=== PATIENT | female | born 1965 | race Two or more races ===

== ENCOUNTER 2023-05-25 09:54 | Outpatient (REF) | payer MEDICAID, OTHER, SELFPAY ==
[2023-05-25 12:26] LABS: Alanine Aminotransferase 51 U/L (0-31); Albumin Level 4.4 g/dL (3.5-5.0); Alkaline Phosphatase 79 U/L (39-117); Anion Gap 14 (12-20); Aspartate Amino Transferase 45 U/L (5-31); Bilirubin Total 0.6 mg/dL (0.0-1.0); Blood Urea Nitrogen 18 mg/dL (9-16); Calcium 10.4 mg/dL (8.4-10.2); Carbon Dioxide 28 mmol/L (22-29); Chloride 105 mmol/L (96-108); Cholesterol 210 mg/dL (<200); Estimated Glomerular Filt Rate > 60; Glucose Random 94 mg/dL (60-115); HDL Cholesterol 59 mg/dL (>40); LDL Cholesterol Calculated 132 mg/dL (<100); Sodium 143 mmol/L (135-145); Total Protein 8.1 g/dL (6.5-8.0); Triglycerides 96 mg/dL (<150)
== END 2023-05-25 09:55 | disposition home or self-care (01) ==
LOC: HO.HHCL 09:54
PROVIDERS: Visit Provider Nurse Practitioner Family
DX: E78.00 Pure hypercholesterolemia, unspecified (principal); I10 Essential (primary) hypertension
CPT/HCPCS: 36415; 80053; 80061

== ENCOUNTER 2023-10-06 10:35 | Outpatient (AMB) | payer OTHER, SELFPAY ==
--- NOTE | 2023-10-06 11:29 | A.OFFPC_ITS ---
Vital Signs 10/06/23 11:31 Height 5 ft 3 in Weight 191 lb 8 oz BMI 33.9 BP 132/80 Blood Pressure Location Lt brachial Position Sitting Pulse 73 Pulse Source Pulse Oximeter Pulse Oximetry (%) 97 Oxygen Delivery Method Room Air Intake Visit Reasons: New patient-discuss referral to pain management Intake Note: Patient is a new patient here to establish care for Asthma, Chronic back pain,HTN, High cholesterol. Transferring care from [facility]. Medical records have not been requested and have not received. Request for pain management, and mammogram Delivery Associate Required: Yes Delivery Associate Language: Beef Splitter Name: Ana Paula (spouse) Information Interpreted: non-clinical & clinical Mortgage Loan Specialist: Present Accompanied by: Spouse Allergies ibuprofen Allergy (Intermediate, Verified 10/07/23 14:07) Hives salbutamol Allergy (Intermediate, Uncoded 10/07/23 14:07) Palpitations Medication List - Last Reconciled 10/07/23 by Tim Joseph MD ipratropium bromide 17 mcg/actuation (Atrovent HFA) 2 puffs inhalation Q8H losartan 100 mg PO DAILY rosuvastatin 40 mg PO DAILY Tobacco use date assessed: 10/06/23 Dental Screening Dental Screen Date: 10/06/23 Did you have a dental visit in the last 12 months?: Yes Did you have a dental problem in the last 6 months where you did not have access to dental care?: No Was dental information given to patient?: Patient has dentist HPI New patient-discuss referral to pain management HPI Details 57-year-old female [facility] to [facility] her care here. She has recently moved from [facility]. She is accompanied by her who is speaking on her behalf and translating. Patient gives history of hypertension, hypercholesterolemia and asthma. She requests a refill on the rosuvastatin and Pulmicort. She is taking Plavix for an unknown reason. Denies any history of irregular heart rate or stroke. Patient had back surgery in 2009 with fusion disc. Started experiencing symptoms of low back pain with radiating into the right leg. Patient is requesting a referral to the pain clinic. She would also like to see a energy broker. [facility], [facility] Medical History (Updated 10/07/23 @ 14:18 by Tim Joseph MD) Low back pain Hypercholesterolemia Essential hypertension Asthma History of benign breast biopsy Surgical History History of back surgery History of cystostomy Social History Housing: House Alcohol intake: never Patient Tobacco Use Status: Never used Tobacco e-Cigarette/Vaping Use: Never Used Second Hand Smoke Exposure: No service: No Current occupational status: unemployed Cognitive needs: No Hearing needs: No Vision needs: No Questionnaire PHQ-9 Over the last 2 weeks, how often have you been bothered by any of the following problems? 1. Little interest or pleasure in doing things: not at all 2. Feeling down, depressed, or hopeless: not at all 3. Trouble falling or staying asleep, or sleeping too much: not at all 4. Feeling tired or having little energy: not at all 5. Poor appetite or overeating: not at all 6. Feeling bad about yourself - or that you are a failure or have let yourself or your family down: not at all 7. Trouble concentrating on things, such as reading the newspaper or watching television: not at all 8. Moving or speaking so slowly that other people could have noticed. Or the opposite - being so fidgety or restless that you have been moving around a lot more than usual: not at all 9. Thoughts that you would be better off or of hurting yourself in some way: not at all Total score: 0 Depression Screening Interpretation: Negative Depression Screening Done: Yes Source: Developed by Drs. German Velez, Cecily Lew, Bay Cruz and colleagues, with an educational crystal from [employer]. Thrive Questionnaire Date Thrive assessed: 10/06/23 I am a: Patient What is your living situation today?: I have a steady place to live Within the past 12 months, did the food you bought not last and you didn't have the money to get more?: Never true Within the past 12 months, did you worry whether your food would run out before you got money to buy more?: Never true Do you have trouble paying for medicines?: No Do you have trouble getting transportation to medical appointments?: No Do you have trouble paying your heating and electricity bill?: No Do you have trouble taking care of your child, family member or friend?: No Do you have trouble with day-to-day activities such as bathing, preparing meals, shopping, managing finances, etc.?: No Are you currently unemployed and looking for a job?: No Are you interested in more education?: No Currently or been in a relationship where the following occur: no concerns reported THRIVE Score: 0 AUDIT C Alcohol Use Questionnaire (AUDIT-C) 1. How often do you have a drink containing alcohol?: Never Total Score: 0 AFSHAN-7 AMB Questionnaire AFSHAN-7 Date AFSHAN - 7 assessed: 10/06/23 Feeling nervous, anxious, or on edge: 0 = Not at all Not being able to stop or control worryin = Not at all Worrying too much about different things: 0 = Not at all Trouble relaxin = Not at all Being so restless that it is hard to sit still: 0 = Not at all Becoming easily annoyed or irritable: 0 = Not at all Feeling afraid as if something awful might happen: 0 = Not at all Total AFSHAN-7 score (0-4 normal; 5-9 mild; 10-14 moderate; 15-21 severe): 0 Source: Developed by Drs. German Velez, Cecily Lew, Bay Cruz and colleagues, with an educational crystal from [employer]. Physical exam (Primary Care) Vital Signs: Last Vital Signs Pulse 73 10/06/23 11:31 BP 132/80 10/06/23 11:31 Pulse Ox 97 10/06/23 11:31 Oxygen Delivery Method Room Air 10/06/23 11:31 Care Plan Goal for BP management: Blood pressure is in range. Continue current medications. BMI result Body Mass Index 33.9 BMI Assessment/Plan discussion: High (1 lb per week weight loss suggested.) BMI High, discussed plan: lifestyle, weight reduction, dietary and physical activity Tobacco/Smoking Status: Tobacco use Status Tobacco use date assessed 10/06/23 10/06/23 11:46 Patient Tobacco Use Status Never used Tobacco 10/06/23 11:46 e-Cigarette/Vaping Use Never Used 10/06/23 11:46 PHQ-9: PHQ-9 Score PHQ-9: Total score 0 10/06/23 11:46 Depression Screening Interpretation: Negative Thrive Assessment: Date of Thrive Assessment Date Thrive assessed 10/06/23 10/06/23 11:46 Currently or been in a relationship where the following occur: no concerns reported Const General: cooperative and healthy appearing Nutritional Appearance: well nourished Orientation/consciousness: patient oriented x3 Limitations: no limitations HENMT Head: Yes normal to inspection Eyes General: appearance normal, both eyes and all related structures Neck Neck: Yes normal visual inspection Chest Chest palpation & inspection: normal palpation of entire chest wall Resp Effort & Inspection: normal respiratory effort Neuro General: patient oriented x3 Assessment and Plan Assessment & Plan (1) Essential hypertension: Code(s): I10 - Essential (primary) hypertension Plan: Blood work has been ordered. Will call with results. Prescription for losartan has been sent. Old records from her previous provider will be requested. There is no indication for her to be on Plavix. This medication has not been refilled. (2) Asthma: Code(s): J45.909 - Unspecified asthma, uncomplicated Plan: Atrovent added to the regimen. Pulmonology consult made. (3) Hypercholesterolemia: Code(s): E78.00 - Pure hypercholesterolemia, unspecified Plan: Rosuvastatin has been restarted. Counseling on the importance of diet and exercise done. (4) Low back pain: Code(s): M54.50 - Low back pain, unspecified Plan: It has not necessary at the moment to get a pain clinic referral. Patient was advised to do stretching exercises and take Tylenol at night. Orders: Orders Complete Blood Count no Diff Today I10 - Essential (primary) hypertension, J45.909 - Unspecified asthma, uncomplicated Basic Metabolic Panel Today I10 - Essential (primary) hypertension, J45.909 - Unspecified asthma, uncomplicated Lipid Panel Today I10 - Essential (primary) hypertension, J45.909 - Unspecified asthma, uncomplicated Thyroid Stimulating Hormone Today I10 - Essential (primary) hypertension, J45.909 - Unspecified asthma, uncomplicated UA and rflx microscopic Today I10 - Essential (primary) hypertension, J45.909 - Unspecified asthma, uncomplicated MM screening mammo BI Today Z12.31 - Encounter for screening mammogram for malignant neoplasm of breast Liver Panel Today I10 - Essential (primary) hypertension, J45.909 - Unspecified asthma, uncomplicated Referrals Pulmonology Referral J45.909 - Unspecified asthma, uncomplicated Medications: New ipratropium bromide 17 mcg/actuation (Atrovent HFA) 2 puffs inhalation Q8H 12.9 grams 0RF Coding Level of Care Code New Pt Level 4 (14684) Diagnoses Essential hypertension I10 Asthma J45.909 Hypercholesterolemia E78.00 Low back pain M54.50
[2023-10-06 11:31] VITALS: BP 132/80; PULSE 73; O2SAT 97; BMI 33.9
== END 2023-10-06 12:15 | disposition home or self-care (01) ==
PROVIDERS: PCP Internal Medicine; Visit Provider Internal Medicine
DX: I10 Essential (primary) hypertension (principal); J45.909 Unspecified asthma, uncomplicated; E78.00 Pure hypercholesterolemia, unspecified; M54.50 Low back pain, unspecified
CPT/HCPCS: 99204

== ENCOUNTER 2023-11-18 08:25 | Outpatient (REF) | payer OTHER, SELFPAY ==
--- NOTE | ~2023-11-18 | MM_ITS ---
EXAMINATION: MM SCREENING DIGITAL BREAST TOMOSYNTHESIS, BILATERAL CLINICAL INFORMATION: Screening. Asymptomatic. The patient reports a history of benign excisional biopsy in the upper outer quadrant of the left breast. COMPARISON: Mammography: There are no prior mammograms for comparison. TECHNIQUE: Digital breast tomosynthesis is performed in both the craniocaudal and mediolateral oblique views along with computer-aided detection (CAD). Synthesized 2D images are generated from the tomosynthesis. FINDINGS: The breasts are heterogeneously dense, which may obscure small masses (ACR BI-RADS breast composition Category c). There are no significant masses, abnormal calcifications, or other abnormalities. MM/MM tomosynthesis screening BI IMPRESSION: No mammographic evidence of malignancy. ASSESSMENT: BI-RADS BI-RADS 1 - Negative RECOMMENDATION: Routine annual mammography screening. 1 year F/U This examination should not preclude the clinical evaluation of a suspicious palpable abnormality. This patient's information was entered into a reminder system with a target due date for their next mammogram.
== END 2023-11-18 08:26 | disposition home or self-care (01) ==
LOC: HO.MAMMO 08:25
PROVIDERS: PCP Internal Medicine; Visit Provider Internal Medicine
DX: Z12.31 Encounter for screening mammogram for malignant neoplasm of breast (principal)
CPT/HCPCS: 77063; 77067

== ENCOUNTER → 2023-11-18 08:45 | Outpatient (BNV) | payer OTHER, SELFPAY | PROVIDERS: PCP Internal Medicine; Visit Provider Radiology Diagnostic Radiology | DX: Z12.31 Encounter for screening mammogram for malignant neoplasm of breast (principal) | CPT/HCPCS: 77063; 77067 ==

== ENCOUNTER 2023-12-09 08:54 | Outpatient (REF) | payer OTHER, SELFPAY ==
--- NOTE | ~2023-12-09 | XR_ITS ---
EXAMINATION: XR CHEST 2 VIEWS CLINICAL INFORMATION: Asthma. COMPARISON: None. TECHNIQUE: Frontal and lateral views of the chest were obtained. FINDINGS: The heart, great vessels, pulmonary vasculature and mediastinum are normal. The lungs show no focal infiltrate, effusion or pneumothorax. There is bilateral bronchiolar wall thickening, consistent with the provided history of asthma. There is no acute osseous abnormality. XR/XR chest 2V IMPRESSION: There is bilateral bronchiolar wall thickening, consistent with the provided history of asthma. No focal infiltrate or congestive heart failure is seen.
[2023-12-09 10:16] LABS: Hemoglobin 12.9 g/dl (12.0-16.0); Mean Corpuscular HGB Conc 33.1 g/dl (31.0-35.0); Mean Corpuscular Hemoglobin 30.3 pg (27.0-33.0); Mean Corpuscular Volume 91.5 fL (80.0-98.0); Mean Platelet Volume 11.2 fL (9.4-12.3); Platelet Count 239 X10*3/uL (160-400); Red Blood Count 4.26 X10*6/uL (4.20-5.50); White Blood Count 5.2 X10*3/uL (4.8-10.8)
[2023-12-09 11:11] LABS: Appearance Urine Clear; Color Urine Yellow; Glucose Urine UA Negative (Negative); Leukocyte Esterase Urine Trace (Negative); Nitrite Urine Negative (Negative); Specific Gravity - Urine 1.015 (1.005-1.025); UMIC TRIGGER UA YES; Urine Blood Negative (Negative); Urine Ketones Negative (Negative); Urine Protein Negative (Neg-Trace)
[2023-12-09 11:20] LABS: Bacteria Urine 1+ (None Seen); Hyaline Casts Urine 0-2 /LPF (0-2); RBC Urine 0-2 /HPF (0-2); Squamous Epithelial Cell Urine 0-2 /HPF (0-2); WBC Urine 0-5 /HPF (0-5)
[2023-12-09 11:33] LABS: Alanine Aminotransferase 23 U/L (0-31); Albumin Level 3.9 g/dL (3.5-5.0); Alkaline Phosphatase 85 U/L (39-117); Anion Gap 12 (12-20); Aspartate Amino Transferase 22 U/L (5-31); Bilirubin Direct 0.2 mg/dL (0.0-0.5); Bilirubin Total 0.5 mg/dL (0.0-1.0); Blood Urea Nitrogen 17 mg/dL (9-16); Calcium 9.5 mg/dL (8.4-10.2); Carbon Dioxide 27 mmol/L (22-29); Chloride 106 mmol/L (96-108); Cholesterol 160 mg/dL (<200); Estimated Glomerular Filt Rate > 60; Glucose Random 90 mg/dL (60-115); HDL Cholesterol 52 mg/dL (>40); LDL Cholesterol Calculated 93 mg/dL (<100); Potassium 4.3 mmol/L (3.3-5.1); Sodium 141 mmol/L (135-145); Thyroid Stimulating Hormone 1.13 uIU/mL (0.32-4.0); Total Protein 7.5 g/dL (6.5-8.0); Triglycerides 78 mg/dL (<150)
== END 2023-12-09 08:55 | disposition home or self-care (01) ==
LOC: HO.LAB 08:54
PROVIDERS: PCP Internal Medicine; Visit Provider Internal Medicine
DX: Z23 Encounter for immunization (principal); J45.909 Unspecified asthma, uncomplicated; I10 Essential (primary) hypertension; J98.11 Atelectasis
CPT/HCPCS: 36415; 71046; 80048; 80061; 80076; 81001; 84443; 85027; 90471; 90677

== ENCOUNTER 2023-12-09 09:41 | Outpatient (AMB) | payer OTHER, SELFPAY ==
--- NOTE | 2023-12-09 09:58 | A.OFFVIS_ITS ---
Intake Vital Signs 12/09/23 09:59 Height 5 ft 4 in Weight 197 lb 5.019 oz BMI 33.9 Pulse 74 Pulse Source Pulse Oximeter Pulse Oximetry (%) 97 Oxygen Delivery Method Room Air Intake Visit Reasons: Asthma Perioperative Nurse Required: No Allergies ibuprofen Allergy (Intermediate, Verified 12/09/23 10:00) Hives salbutamol Allergy (Intermediate, Uncoded 12/09/23 10:00) Palpitations HPI HPI Comments History of Present Illness Details The patient is here for a pulmonary evaluation. The patient is a 57 year woman with lifelong asthma. The patient states that she has been doing fairly well. Although she has had intermittent shortness of breath and chest tightness. Her significant other complaints at time she does wake up with significant chest congestion cough with mucus production. Typically that happens more at nighttime. Sometimes she wakes up short of breath from a sound sleep with significant chest congestion and feels like she is choking with her secretions. She is relief with the fact that she does wake up and is able to clear secretions. She does not tolerate albuterol because it caused palpitation tremulousness. She typically responds better to ipratropium via the nebulizer or HFA. Will make sure that provide the medication for her. The patient also does have underlying allergy symptoms. Although she has never had proper allergy testing. She does complaint of postnasal drip chronic rhinitis. She denies any eczema. The patient does not have any significant wheezing on exam today. Although she is very diminished. She does state that back in the [place] she did have a chest x-ray and she was told that she has atelectasis. Therefore will go ahead and repeat the x-ray at this time in addition to blood work and allergy testing. In regards of maintenance therapy will hold off on any inhaled steroids but I do believe the singular will be a good option for her at this time. Will follow-up after her PFTs and blood work in about 2-3 months. [facility] Medical History (Updated 12/11/23 @ 22:24 by Warren Ríos MD) Chronic allergic rhinitis Atelectasis Low back pain Hypercholesterolemia Essential hypertension Asthma History of benign breast biopsy Surgical History History of back surgery History of cystostomy Social History Housing: House Alcohol intake: never Patient Tobacco Use Status: Never used Tobacco e-Cigarette/Vaping Use: Never Used Second Hand Smoke Exposure: No service: No Current occupational status: unemployed Cognitive needs: No Hearing needs: No Vision needs: No Review of Systems Const Denies fever(s) Eyes Reports no additional complaints ENT Reports nasal congestion and Reports nasal discharge Card Denies chest pain Resp Reports cough and Reports wheezing GI Reports heartburn Musc Reports no additional complaints Skin/Breast Denies rash Neuro Reports no additional complaints Gama/Lymph Denies lymphadenopathy Aller/Immun Reports wheezing Physical Exam Vital Signs: Last Vital Signs Pulse 74 12/09/23 09:59 Pulse Ox 97 12/09/23 09:59 Oxygen Delivery Method Room Air 12/09/23 09:59 BMI result Body Mass Index 33.9 Const General: comfortable HEENT Head: Yes normocephalic Neck Neck: Yes supple Chest Chest palpation & inspection: normal inspection of the chest Resp Effort & Inspection: normal respiratory effort Auscultation: clear to auscultation bilaterally, no rhonchi and no wheezes Cardio Heart sounds: S1 normal heart sound present and S2 normal heart sound present GI Palpation (GI): Soft to palpation Skin General skin exam: no rashes or lesions noted Extrem General: Yes no clubbing, cyanosis or edema Immunizations pneumoc 20-ab conj-dip cr(PF) 0.5 mL IM syringe Performing Provider: Warren Ríos MD Performing Location: [facility] Pulmonology Services Administered by: Lary Martinez LPN on 12/09/23 10:40 Dose Route Admin Location Dispensed Lot Number Expiration Date FORMERLY NAMED [facility] Instrumentation And Control Technician 0.5 mL IM Right Deltoid 0.5 mL [id number] 11/09/24 9984-4840-33 [employer] VIS Given Date VIS Provided VIS Publication Date 12/09/23 Single Vaccine 23 Eligibility Eligibility Date Funding Source Not [facility] Eligible 12/09/23 Private Assessment & Plan Assessment & Plan (1) Asthma: Code(s): J45.909 - Unspecified asthma, uncomplicated Qualifiers: Asthma severity: moderate Asthma persistence: persistent Asthma complication type: uncomplicated Qualified Code(s): J45.40 - Moderate persistent asthma, uncomplicated (2) Atelectasis: Code(s): J98.11 - Atelectasis (3) Chronic allergic rhinitis: Code(s): J30.9 - Allergic rhinitis, unspecified Plan Start Singulair MARI as needed consider ICS Bloodwork/allergy testing CXR Spirometry during her f/u visit Fluticasone nasal spray nasal rinsing F/U 3-4 months Orders: Orders Complete Blood Count Auto Diff 12/09/23 J45.909 - Unspecified asthma, uncomplicated, J98.11 - Atelectasis Erythrocyte Sedimentation Rate 12/09/23 J45.909 - Unspecified asthma, uncomplicated, J98.11 - Atelectasis Resp Allergy Profile Region I 12/09/23 J45.909 - Unspecified asthma, uncomplicated, J98.11 - Atelectasis, R91.1 - Solitary pulmonary nodule T Spot TB 12/09/23 J45.909 - Unspecified asthma, uncomplicated, J98.11 - Atelectasis XR chest 2V 12/09/23 J45.909 - Unspecified asthma, uncomplicated, J98.11 - Atelectasis Immunoglobulin E 12/09/23 J45.909 - Unspecified asthma, uncomplicated, J98.11 - Atelectasis Pneumococcal 20 Immunization 12/09/23 J45.909 - Unspecified asthma, uncomplicated, J98.11 - Atelectasis Medications: New montelukast (Singulair) 10 mg PO BEDTIME 30 days 30 tabs 11RF J45.909 - Unspecified asthma, uncomplicated ipratropium bromide 17 mcg/actuation (Atrovent HFA) 2 puffs inhalation Q6H 30 days PRN 12.9 grams 11RF shortness of breath or wheezing ipratropium bromide 2.5 mL inhalation Q6H PRN 150 mL 11RF shortness of breath or wheezing fluticasone propionate 50 mcg/actuation 2 sprays intranasal DAILY 30 days 15.8 mL 11RF J31.0 - Chronic rhinitis Coding Level of Care Code New Pt Level 4 (34668) Diagnoses Moderate persistent asthma without complication J45.40 Asthma severity: moderate Asthma persistence: persistent Asthma complication type: uncomplicated Atelectasis J98.11 Chronic allergic rhinitis J30.9 Time Spent (min) 35
[2023-12-09 09:59] VITALS: PULSE 74; O2SAT 97; BMI 33.9
== END 2023-12-09 10:40 | disposition home or self-care (01) ==
PROVIDERS: PCP Internal Medicine; Visit Provider Hospitalist
DX: J45.40 Moderate persistent asthma, uncomplicated (principal); J98.11 Atelectasis; J30.9 Allergic rhinitis, unspecified
CPT/HCPCS: 99204

== ENCOUNTER 2023-12-09 10:41 | Outpatient (REF) | payer OTHER, SELFPAY ==
[2023-12-09 10:54] LABS: MANUAL DIFF FLAG NO
[2023-12-09 12:28] LABS: Basophils Percent Auto 0.6 % (0-2); Eosinophils Absolute Auto 0.1 X10*3/uL (0.0-0.4); Eosinophils Percent Auto 2.3 % (0-4); Hematocrit 38.9 % (37.0-47.0); Imm Gran Abs Auto 0.01 X10*3/uL (0.00-0.03); Imm Gran Pct Auto 0.2 % (0.0-0.4); Lymphocytes Absolute Auto 1.9 X10*3/uL (1.2-4.9); Lymphocytes Percent Auto 38.1 % (20-40); Mean Corpuscular HGB Conc 33.4 g/dl (31.0-35.0); Mean Corpuscular Hemoglobin 30.6 pg (27.0-33.0); Mean Corpuscular Volume 91.5 fL (80.0-98.0); Mean Platelet Volume 11.7 fL (9.4-12.3); Monocytes Absolute Auto 0.5 X10*3/uL (0.1-1.2); Neutrophils Absolute Auto 2.4 x10*3/uL (2.0-8.3); Neutrophils Percent Auto 48.8 % (45-73); Platelet Count 213 X10*3/uL (160-400); Red Blood Count 4.25 X10*6/uL (4.20-5.50); Red Cell Distribution Width 12.1 % (11.0-16.0); White Blood Count 4.9 X10*3/uL (4.8-10.8)
[2023-12-09 13:05] LABS: Erythrocyte Sedimentation Rate 16 MM/HR (0-20)
[2023-12-11 22:09] LABS: TS Negative Control Passed; TS Panel A 0; TS Panel B 2; TS Positive Control Passed; TSpotTB Negative (Negative)
[2023-12-12 18:58] LABS: Immunoglobulin E 284 kU/L (<OR=114)
== END 2023-12-09 10:42 | disposition home or self-care (01) ==
LOC: HO.XRAY 10:41
PROVIDERS: PCP Internal Medicine; Visit Provider Hospitalist
DX: Z11.1 Encounter for screening for respiratory tuberculosis (principal); J45.909 Unspecified asthma, uncomplicated; J98.11 Atelectasis
CPT/HCPCS: 36415; 82785; 85025; 85652; 86481

== ENCOUNTER 2024-01-19 10:36 | Outpatient (AMB) | payer OTHER, SELFPAY ==
--- NOTE | 2024-01-19 10:43 | A.OFFPC_ITS ---
Vital Signs 01/19/24 10:45 Height 5 ft 4 in Weight 198 lb 2 oz BMI 34.0 BP 120/76 Blood Pressure Location Lt brachial Position Sitting Pulse 80 Pulse Source Pulse Oximeter Pulse Oximetry (%) 97 Oxygen Delivery Method Room Air Intake Visit Reasons: 4 month f/u Intake Note: Patient is here to follow up on HTN, Asthma, Hypercholesterolemia. Public Safety Dispatcher Required: Yes Public Safety Dispatcher Language: Lockstitch Topstitcher Name: Ana Paula (spouse) Information Interpreted: non-clinical & clinical Household Assistant: Present Accompanied by: Spouse Allergies ibuprofen Allergy (Intermediate, Verified 01/19/24 10:44) Hives salbutamol Allergy (Intermediate, Uncoded 01/19/24 10:44) Palpitations Tobacco use date assessed: 01/19/24 Dental Screening Dental Screen Date: 10/06/23 HPI 4 month f/u HPI Details 58-year-old female presents to the offic e to discuss her chronic medical conditions. Patient had her sleeve gastrectomy. On January 05. She continues to have hunger episodes that are debilitating. When she eats or swallows liquid she feels a burning sensation behind her sternum. Patient is using the protein shakes given by the bariatric surgeon. She is stopped the metformin. Patient started with a weight of 211 lb and has now dropped to 193 lb. Continues to feel anxious. [facility] Medical History (Updated 01/22/24 @ 10:54 by Tim Joseph MD) Class 2 severe obesity with body mass index (BMI) of 35 to 39.9 with serious comorbidity Chronic allergic rhinitis Atelectasis Low back pain Hypercholesterolemia Essential hypertension Asthma History of benign breast biopsy Surgical History History of back surgery History of cystostomy Social History Housing: House Alcohol intake: never Patient Tobacco Use Status: Never used Tobacco e-Cigarette/Vaping Use: Never Used Second Hand Smoke Exposure: No service: No Current occupational status: unemployed Cognitive needs: No Hearing needs: No Vision needs: No Questionnaire Thrive Questionnaire Date Thrive assessed: 10/06/23 Currently or been in a relationship where the following occur: no concerns reported THRIVE Score: 0 AFSHAN-7 AMB Questionnaire AFSHAN-7 Date AFSHAN - 7 assessed: 10/06/23 Source: Developed by Drs. German Velez, Cecily Lew, Bay Cruz and colleagues, with an educational crystal from [employer]. Physical exam (Primary Care) Vital Signs: Last Vital Signs Pulse 80 01/19/24 10:45 BP 120/76 01/19/24 10:45 Pulse Ox 97 01/19/24 10:45 Oxygen Delivery Method Room Air 01/19/24 10:45 Care Plan Goal for BP management: Blood pressure is stable. Continue current management. BMI result Body Mass Index 34.0 BMI Assessment/Plan discussion: High (Recipient of a sleeve gastrectomy.) BMI High, discussed plan: lifestyle, weight reduction and dietary Tobacco/Smoking Status: Tobacco use Status Tobacco use date assessed 01/19/24 01/19/24 10:53 Patient Tobacco Use Status Never used Tobacco 01/19/24 10:53 e-Cigarette/Vaping Use Never Used 01/19/24 10:53 Thrive Assessment: Date of Thrive Assessment Date Thrive assessed 10/06/23 01/19/24 10:53 Currently or been in a relationship where the following occur: no concerns reported Const General: cooperative and healthy appearing Nutritional Appearance: well nourished Orientation/consciousness: patient oriented x3 Limitations: no limitations HENMT Head: Yes normal to inspection Eyes General: appearance normal, both eyes and all related structures Neck Neck: Yes normal visual inspection Chest Chest palpation & inspection: normal palpation of entire chest wall Resp Effort & Inspection: normal respiratory effort Neuro General: patient oriented x3 Assessment and Plan Assessment & Plan (1) Class 2 severe obesity with body mass index (BMI) of 35 to 39.9 with serious comorbidity: Code(s): E66.01 - Morbid (severe) obesity due to excess calories Plan: Patient is a recipient of sleeve gastrectomy. I encouraged her to continue with the current treatment. The hunger pangs should subside and she should benefit with weight loss by eating less. Advised her to use the protein shakes.. (2) Essential hypertension: Code(s): I10 - Essential (primary) hypertension Plan: Blood pressure is stable. Metformin has been discontinued. Counseling on the importance of diet and exercise. Continue blood pressure medications. (3) Hypercholesterolemia: Code(s): E78.00 - Pure hypercholesterolemia, unspecified Coding Level of Care Code Est Pt Level 4 (02161) Diagnoses Class 2 severe obesity with body mass index (BMI) of 35 to 39.9 with serious comorbidity E66.01 Essential hypertension I10 Hypercholesterolemia E78.00
[2024-01-19 10:45] VITALS: BP 120/76; PULSE 80; O2SAT 97; BMI 34.0
== END 2024-01-19 11:21 | disposition home or self-care (01) ==
PROVIDERS: PCP Internal Medicine; Visit Provider Internal Medicine
DX: I10 Essential (primary) hypertension (principal); E66.01 Morbid (severe) obesity due to excess calories; E78.00 Pure hypercholesterolemia, unspecified; Z68.34 Body mass index [BMI] 34.0-34.9, adult
CPT/HCPCS: 99214

== ENCOUNTER 2024-03-12 09:38 | Outpatient (AMB) | payer OTHER, SELFPAY ==
[2024-03-12 09:42] VITALS: PULSE 71; O2SAT 98; BMI 33.1
--- NOTE | 2024-03-12 09:42 | A.OFFVIS_ITS ---
Vital Signs 03/12/24 09:42 Height 5 ft 4 in Weight 193 lb BMI 33.1 Pulse 71 Pulse Source Pulse Oximeter Pulse Oximetry (%) 98 Oxygen Delivery Method Room Air Intake Visit Reasons: copd Hospital Admitting Clerk Required: No Allergies ibuprofen Allergy (Intermediate, Verified 03/12/24 09:44) Hives salbutamol Allergy (Intermediate, Uncoded 03/12/24 09:44) Palpitations HPI Comments Details: The patient is a 58 year woman with lifelong asthma. The patient states that she has been doing fairly well. Although she has had intermittent shortness of breath and chest tightness. Her significant other complaints at time she does wake up with significant chest congestion cough with mucus production. Typically that happens more at nighttime. Sometimes she wakes up short of breath from a sound sleep with significant chest congestion and feels like she is choking with her secretions. She is relief with the fact that she does wake up and is able to clear secretions. She does not tolerate albuterol because it caused palpitation tremulousness. She typically responds better to ipratropium via the nebulizer or HFA. Will make sure that provide the medication for her. The patient also does have underlying allergy symptoms. Although she has never had proper allergy testing. She does complaint of postnasal drip chronic rhinitis. She denies any eczema. The patient does not have any significant wheezing on exam today. Although she is very diminished. She does state that back in the [place] she did have a chest x-ray and she was told that she has atelectasis. Therefore will go ahead and repeat the x-ray at this time in addition to blood work and allergy testing. In regards of maintenance therapy will hold off on any inhaled steroids but I do believe the singular will be a good option for her at this time. Will follow-up after her PFTs and blood work in about 2-3 months. 03/12/2024 the patient is here for a pulmonary follow-up visit. Overall she is doing better her cough is better. She has been using the Singulair medication also the fluticasone nasal spray with good effect. The cough is significantly improved. She also had a chest x-ray demonstrating some evidence of peribronchial cuffing suggesting some degree of bronchitis. Her blood work did demonstrate significant elevations in her IgE consistent with allergies. Although the actual allergy panel was not done. Will go ahead and request again she is going to have it done today. I think be important to know her allergens in order for her to avoid those allergens as much as possible. In the meantime she has not had to use any maintenance respiratory inhalers which is reassuring. [facility] Medical History (Updated 03/12/24 @ 21:36 by Warren Ríos MD) Back pain Allergic Class 2 severe obesity with body mass index (BMI) of 35 to 39.9 with serious comorbidity Chronic allergic rhinitis Atelectasis Low back pain Hypercholesterolemia Essential hypertension Asthma History of benign breast biopsy Surgical History History of back surgery History of cystostomy Social History Housing: House Alcohol intake: never Patient Tobacco Use Status: Never used Tobacco e-Cigarette/Vaping Use: Never Used Second Hand Smoke Exposure: No service: No Current occupational status: unemployed Cognitive needs: No Hearing needs: No Vision needs: No Review of Systems Const Denies fever(s) Eyes Reports no additional complaints ENT Reports nasal congestion and Reports nasal discharge Card Denies chest pain Resp Reports cough and Denies wheezing GI Reports heartburn Musc Reports back pain, Reports myalgias and Reports limited range of motion Skin/Breast Denies rash Neuro Reports no additional complaints Gama/Lymph Denies lymphadenopathy Aller/Immun Denies wheezing Physical Exam Vital Signs: Last Vital Signs Pulse 71 03/12/24 09:42 Pulse Ox 98 03/12/24 09:42 Oxygen Delivery Method Room Air 03/12/24 09:42 BMI result Body Mass Index 33.1 Const General: comfortable HEENT Head: Yes normocephalic Neck Neck: Yes supple Chest Chest palpation & inspection: normal inspection of the chest Resp Effort & Inspection: normal respiratory effort Auscultation: clear to auscultation bilaterally, no rhonchi and no wheezes Cardio Heart sounds: S1 normal heart sound present and S2 normal heart sound present GI Palpation (GI): Soft to palpation Back/Spine/Pelvis Back: back tenderness Thoracic/Lumbar Spine: paraspinal muscle tenderness Skin General skin exam: no rashes or lesions noted Extrem General: Yes no clubbing, cyanosis or edema Assessment & Plan Assessment & Plan (1) Asthma: Code(s): J45.909 - Unspecified asthma, uncomplicated Category: Medical Qualifiers: Asthma complication type: uncomplicated Asthma persistence: persistent Asthma severity: moderate Qualified Code(s): J45.40 - Moderate persistent asthma, uncomplicated (2) Atelectasis: Code(s): J98.11 - Atelectasis Category: Medical (3) Chronic allergic rhinitis: Code(s): J30.9 - Allergic rhinitis, unspecified Category: Medical (4) Allergic: Code(s): T78.40XA - Allergy, unspecified, initial encounter Category: Medical Qualifiers: Encounter type: subsequent encounter Qualified Code(s): T78.40XD - Allergy, unspecified, subsequent encounter (5) Back pain: Code(s): M54.9 - Dorsalgia, unspecified Category: Medical Qualifiers: Back pain location: back pain in unspecified location Chronicity: chronic Back pain laterality: unspecified Qualified Code(s): M54.9 - Dorsalgia, unspecified; G89.29 - Other chronic pain Plan continue Singulair MARI as needed consider ICS Fluticasone nasal spray nasal rinsing Allergy panel pain eval for chronic back pain F/U 10-12 months Orders: Orders Resp Allergy Profile Region I Today J30.9 - Allergic rhinitis, unspecified, J45.40 - Moderate persistent asthma, uncomplicated, R91.1 - Solitary pulmonary nodule, T78.40XA - Allergy, unspecified, initial encounter Referrals Pain Management Referral M54.9 - Dorsalgia, unspecified Medications: Refilled fluticasone propionate 50 mcg/actuation 2 sprays intranasal DAILY 15.8 mL 11RF 30 days J31.0 - Chronic rhinitis montelukast (Singulair) 10 mg PO BEDTIME 30 tabs 11RF 30 days J45.909 - Unspecified asthma, uncomplicated Coding Level of Care Code Est Pt Level 4 (00840) Diagnoses Moderate persistent asthma without complication J45.40 Asthma complication type: uncomplicated Asthma persistence: persistent Asthma severity: moderate Atelectasis J98.11 Chronic allergic rhinitis J30.9 Allergic disorder, subsequent encounter T78.40XD Encounter type: subsequent encounter Chronic back pain, unspecified back location, unspecified back pain laterality M54.9; G89.29 Back pain location: back pain in unspecified location Chronicity: chronic Back pain laterality: unspecified Time Spent (min) 17
== END 2024-03-12 09:58 | disposition home or self-care (01) ==
PROVIDERS: PCP Internal Medicine; Visit Provider Hospitalist
DX: J45.40 Moderate persistent asthma, uncomplicated (principal); J98.11 Atelectasis; J30.9 Allergic rhinitis, unspecified; T78.40XD Allergy, unspecified, subsequent encounter; M54.9 Dorsalgia, unspecified; G89.29 Other chronic pain
CPT/HCPCS: 99214

== ENCOUNTER 2024-03-12 09:38 | Outpatient (REF) | payer OTHER, SELFPAY ==
[2024-03-13 23:08] LABS: Class Alternaria alternata 0; Class Aspergillus fumigatus 0; Class Bermuda Grass 0; Class Birch 0/1; Class Cat Dander 0; Class Cladosporium herbarum 0; Class Cockroach 2; Class Common Ragweed 1; Class Cottonwood 1; Class Derm. pterony 2; Class Dermatophagoides farinae 2; Class Dog Dander 0; Class Elm 0/1; Class Maple Box Elder 2; Class Mountain Cedar 0/1; Class Mouse Urine Protein 0; Class Mugwort 0; Class Oak 0/1; Class Penicillium crysogenum 0; Class Rough Pigweed 0; Class Sheep Sorrel 0; Class Sycamore 0/1; Class Timothy Grass 1; Class Walnut Tree 0/1; Class White Ash 1; Class White Mulberry 0; D001 IgE D pteronyssinus 2.32 kU/L; D002 - IgE D farinae 1.96 kU/L; E001 - IgE Cat Dander <0.10 kU/L; E005 - IgE Dog Dander <0.10 kU/L; E072-IgE Mouse Urine <0.10 kU/L; G002 IgE Bermuda Grass <0.10 kU/L; G006 - IgE Timothy Grass 0.55 kU/L; I006-IgE Cockroach, German 0.92 kU/L; Immunoglobulin E 216 kU/L (<OR=114); M001 IgE Penicillium chrysogen <0.10 kU/L; M002 - IgE Cladosporium herbar <0.10 kU/L; M003 - IgE Aspergillus fumigat <0.10 kU/L; M006 - IgE Alternaria alternat <0.10 kU/L; T001 IgE Maple/Box Elder 0.77 kU/L; T003 IgE Common Silver Birch 0.17 kU/L; T006 - IgE Cedar, Mountain 0.31 kU/L; T007 - IgE Oak, White 0.31 kU/L; T010 - IgE Walnut 0.22 kU/L; T011 - IgE Maple Leaf Sycamore 0.16 kU/L; T014 - IgE Cottonwood 0.66 kU/L; T015 - IgE Ash, White 0.47 kU/L; T070 - IgE White Mulberry <0.10 kU/L; W001 - IgE Ragweed, Short 0.59 kU/L; W006 - IgE Mugwort <0.10 kU/L; W014 IgE Pigweed, Common <0.10 kU/L; W018 IgE Sheep Sorrel <0.10 kU/L
== END 2024-03-12 09:39 | disposition home or self-care (01) ==
LOC: HO.LAB 09:38
PROVIDERS: PCP Internal Medicine; Visit Provider Hospitalist
DX: R91.1 Solitary pulmonary nodule (principal); J30.9 Allergic rhinitis, unspecified; J45.40 Moderate persistent asthma, uncomplicated; T78.40XA Allergy, unspecified, initial encounter
CPT/HCPCS: 36415; 82785; 86003

== ENCOUNTER 2024-03-26 07:59 | Outpatient (AMB) | payer OTHER, SELFPAY ==
--- NOTE | 2024-03-26 08:00 | A.OFFVIS_ITS ---
Vital Signs 03/26/24 08:01 Height 5 ft 4 in Weight 195 lb BMI 33.5 BP 138/78 Blood Pressure Location Lt brachial Position Sitting Respiration 14 Pulse 77 Pulse Source Pulse Oximeter Pulse Oximetry (%) 98 Oxygen Delivery Method Room Air Intake Visit Reasons: Dorsalgia Senior Integration Developer Required: Yes Senior Integration Developer Name: prefers to translate Allergies ibuprofen Allergy (Intermediate, Verified 03/26/24 08:02) Hives salbutamol Allergy (Intermediate, Uncoded 03/26/24 08:02) Palpitations Medication List - Last Reconciled 03/26/24 by Indiana Thomas LPN clopidogrel (Plavix) 75 mg PO DAILY fluticasone propionate 50 mcg/actuation 2 sprays intranasal DAILY 30 days ipratropium bromide 17 mcg/actuation (Atrovent HFA) 2 puffs inhalation Q6H PRN 30 days ipratropium bromide 2.5 mL inhalation Q6H PRN losartan 100 mg PO DAILY montelukast (Singulair) 10 mg PO BEDTIME 30 days rosuvastatin 40 mg PO DAILY HPI HPI Dorsalgia: Details: 58-year-old female who presents today to the office for an evaluation of do rsalgia. History is notable for longstanding back pain. The patient had back surgery in 2009 in the [place]. In recent months she has been experiencing symptoms of low back pain radiating into the right leg that of progressively worsened, to the extent of being 10/10 for most of the time. She is unable to do any kind of daily activities or sleep normally. She reports constant pain in her back. Her pain is aggravated by movements, and sitting or resting alleviates the pain. She states that she has a gait imbalance issue when standing still at one place. She reports intermittent neck pain. She has not done any imaging or PT in the past. She has no implants in her body. She is taking Plavix for elevated blood pressure and rosuvastatin for elevated cholesterol level.?She has no history of heart attack, CVA or blood clots in the past. [facility] Medical History (Updated 03/26/24 @ 08:35 by Bertrand Pagan MD) Back pain Allergic Class 2 severe obesity with body mass index (BMI) of 35 to 39.9 with serious comorbidity Chronic allergic rhinitis Atelectasis Low back pain Hypercholesterolemia Essential hypertension Asthma History of benign breast biopsy Surgical History History of back surgery History of cystostomy Social History Housing: House Alcohol intake: never Patient Tobacco Use Status: Never used Tobacco e-Cigarette/Vaping Use: Never Used Second Hand Smoke Exposure: No service: No Current occupational status: unemployed Cognitive needs: No Hearing needs: No Vision needs: No Review of Systems Const All systems reviewed & are unremarkable except as noted in HPI and below Physical Exam Vital Signs: Last Vital Signs Pulse 77 03/26/24 08:01 Resp 14 03/26/24 08:01 BP 138/78 03/26/24 08:01 Pulse Ox 98 03/26/24 08:01 Oxygen Delivery Method Room Air 03/26/24 08:01 BMI result Body Mass Index 33.5 General: Appears afebrile. Alert and oriented. Mood and affect appropriate. Follows and participates in conversation appropriately. Respiratory effort is unlabored. Able to transition from sit to stand unassisted. Ambulates with bilaterally normal heel strike and toe off. Well-healed midline incision in the lower back from prior spine surgery. Results Reviewed Results Reviewed: No imaging is available for review. Assessment & Plan Assessment & Plan (1) Lumbar radiculopathy: Code(s): M54.16 - Radiculopathy, lumbar region Category: Medical (2) Post laminectomy syndrome: Code(s): M96.1 - Postlaminectomy syndrome, not elsewhere classified Category: Medical (3) Cervical spondylosis: Code(s): M47.812 - Spondylosis without myelopathy or radiculopathy, cervical region Category: Medical Plan A referral was provided to physical therapy for back and neck pain. The patient will receive a call to schedule an appointment. I ordered an MRI scan of the lumbar spine for further evaluation. The patient will schedule an appointment with us one week after completing the MRI scan. Counseled the patient to stop taking clopidogrel since she has no prior history of an [place] or CVA. Her lipid panel is within normal limits at this time. Scribed for Dr. Pagan by Victor Manuel Zur[place] medical instructor, on 03/26/2024. I, Dr. Pagan, have personally reviewed and agree with the information entered by the scribe. Orders: Orders PT Evaluation and Treatment Today M47.812 - Spondylosis without myelopathy or radiculopathy, cervical region, M54.16 - Radiculopathy, lumbar region MR lumbar spine wo con Today M96.1 - Postlaminectomy syndrome, not elsewhere classified Coding Level of Care Code New Pt Level 4 (82010) Diagnoses Lumbar radiculopathy M54.16 Post laminectomy syndrome M96.1 Cervical spondylosis M47.812
[2024-03-26 08:01] VITALS: BP 138/78; PULSE 77; RESP 14; O2SAT 98; BMI 33.5
== END 2024-03-26 08:42 | disposition home or self-care (01) ==
LOC: HO.PMC 08:00
PROVIDERS: PCP Internal Medicine; Visit Provider Internal Medicine
DX: M54.16 Radiculopathy, lumbar region (principal); M96.1 Postlaminectomy syndrome, not elsewhere classified; M47.812 Spondylosis without myelopathy or radiculopathy, cervical region
CPT/HCPCS: 99203

== ENCOUNTER → 2024-03-26 07:59 | Outpatient (BNVA) | payer OTHER, SELFPAY | PROVIDERS: PCP Internal Medicine; Visit Provider Internal Medicine ==

== ENCOUNTER 2024-04-09 18:58 | Outpatient (REF) | payer OTHER, SELFPAY ==
--- NOTE | ~2024-04-09 | MR_ITS ---
EXAMINATION: MR LUMBAR SPINE WITHOUT CONTRAST CLINICAL INFORMATION: Post laminectomy syndrome. COMPARISON: No relevant prior imaging. TECHNIQUE: MRI of the lumbar spine was obtained using routine sequences without contrast. FINDINGS: There is slight grade 1 retrolisthesis of L3 on L4. Alignment is otherwise normal. Vertebral heights are preserved. Type I degenerative endplate changes at L4-L5. Mixed predominantly type II degenerative endplate changes at L5-S1. There is loss of intervertebral disc height and T2 signal intensity at L3-L4, L4-L5, and L5-S1. The tip of the conus medullaris is located at L2. No mass effect on the conus. Visualized distal cord signal intensity is normal. At L1-L2 annular contour is normal. No canal or neuroforaminal compromise. At L2-L3 annular contour is normal. No canal or neuroforaminal compromise. At L3-L4 there are chronic changes of a left hemilaminectomy. There is a bulging disc. Bilateral facet degenerative change. No canal stenosis. Subtle abutment of the left traversing L4 nerve roots. No foraminal nerve root compression. At L4-L5 there are chronic changes of a right hemilaminectomy. There is a bulging disc. Bilateral facet degenerative changes. No canal stenosis. Subtle abutment of both traversing L5 nerve roots. No foraminal nerve root compression. At L5-S1 there is a bulging disc. Bilateral facet degenerative change. No canal stenosis. No mass effect on the traversing or foraminal nerve roots. Limited visualization of the retroperitoneal anatomy reveals no abnormal finding. Psoas and paraspinal muscle groups are symmetric. MR/MR lumbar spine wo con IMPRESSION: There are chronic changes of a left hemilaminectomy at L3-L4 and a right hemilaminectomy at L4-L5. No evidence of recurrent disc herniation. There is multilevel degenerative spondylosis of the lumbar spine with slight grade 1 retrolisthesis of L3 on L4. No canal stenosis. Subtle abutment of the left traversing L4 nerve roots at L3-L4 and both traversing L5 nerve roots at L4-L5. Otherwise no substantial mass effect on the traversing or foraminal nerve roots elsewhere within the lumbar spine. Electronically signed by: German Morales MD 05/08/2024 03:58 PM EDT
== END 2024-04-09 18:59 | disposition home or self-care (01) ==
LOC: HO.MRI 18:58
PROVIDERS: PCP Internal Medicine; Visit Provider Internal Medicine
DX: M96.1 Postlaminectomy syndrome, not elsewhere classified (principal)
CPT/HCPCS: 72148

== ENCOUNTER 2024-05-10 08:49 | Outpatient (AMB) | payer OTHER, SELFPAY ==
--- NOTE | 2024-05-10 08:57 | MHC.PC.OV ---
Vital Signs 05/10/24 08:59 Height 5 ft 4 in Weight 198 lb 2 oz BMI 34.0 BP 140/80 H Blood Pressure Location Lt brachial Position Sitting Pulse 56 Pulse Source Pulse Oximeter Pulse Oximetry (%) 96 Oxygen Delivery Method Room Air Intake Visit Reasons: 3mth f/u Intake Note: Patient is here to follow up on HTN, Asthma, Hypercholesterolemia. Taker Off Drying Kiln Required: Yes Taker Off Drying Kiln Language: Pipe Crew Foreman Name: Ana Paula Foy) Information Interpreted: non-clinical & clinical Assistant Professor Of Nursing: Present Accompanied by: Spouse Allergies ibuprofen Allergy (Intermediate, Verified 05/10/24 08:59) Hives salbutamol Allergy (Intermediate, Uncoded 05/10/24 08:59) Palpitations Tobacco use date assessed: 05/10/24 Dental Screening Dental Screen Date: 10/06/23 HPI 3mth f/u HPI Details 58-year-old female presents to the office to discuss her chronic medical conditions. She is accompanied by her . In the last office visit, I had documented that patient received a sleeve gastrectomy. This is an error and patient never had the procedure nor was considered for it. It appears that it is an error in dictation. Patient was informed of the error. Patient continues to have lower back pain and difficulty walking. She has been seen at the pain clinic and physical therapy and an MRI has been ordered. She is awaiting an appointment for the same. Patient agrees to get a screening colonoscopy and mammogram done. Compliant with her medications. [facility], [facility] Medical History (Updated 03/26/24 @ 08:35 by Bertrand Pagan MD) Back pain Allergic Class 2 severe obesity with body mass index (BMI) of 35 to 39.9 with serious comorbidity Chronic allergic rhinitis Atelectasis Low back pain Hypercholesterolemia Essential hypertension Asthma History of benign breast biopsy Surgical History History of back surgery History of cystostomy Social History Housing: House Alcohol intake: never Patient Tobacco Use Status: Never used Tobacco e-Cigarette/Vaping Use: Never Used Second Hand Smoke Exposure: No service: No Current occupational status: unemployed Cognitive needs: No Hearing needs: No Vision needs: No Questionnaire Thrive Questionnaire Date Thrive assessed: 10/06/23 AFSHAN-7 AMB Questionnaire AFSHAN-7 Date AFSHAN - 7 assessed: 10/06/23 Source: Developed by DrsAdonis Velez, Cecily Lew, Bay Cruz and colleagues, with an educational crystal from [employer]. Physical exam (Primary Care) Vital Signs: Last Vital Signs Pulse 56 05/10/24 08:59 BP 140/80 H 05/10/24 08:59 Pulse Ox 96 05/10/24 08:59 Oxygen Delivery Method Room Air 05/10/24 08:59 Care Plan Goal for BP management: Blood pressure is in range. BMI result Body Mass Index 34.0 BMI Assessment/Plan discussion: High (1 lb per week weight loss suggested.) BMI High, discussed plan: lifestyle, weight reduction and dietary Tobacco/Smoking Status: Tobacco use Status Tobacco use date assessed 05/10/24 05/10/24 08:59 Patient Tobacco Use Status Never used Tobacco 05/10/24 08:59 e-Cigarette/Vaping Use Never Used 05/10/24 08:59 Thrive Assessment: Date of Thrive Assessment Date Thrive assessed 10/06/23 05/10/24 08:59 Assessment and Plan Assessment & Plan (1) Lumbar radiculopathy: Code(s): M54.16 - Radiculopathy, lumbar region Plan: Consult from pain management reviewed. Continue physical therapy ordered by them. MRI of the spine has been ordered. Patient is not aware of the date yet. She was asked to follow-up here if the date is not given to her in the next week. (2) Class 2 severe obesity with body mass index (BMI) of 35 to 39.9 with serious comorbidity: Code(s): E66.01 - Morbid (severe) obesity due to excess calories Plan: Counseling on the importance of diet and exercise done. (3) Hypercholesterolemia: Code(s): E78.00 - Pure hypercholesterolemia, unspecified Plan: LDL is in range. Continue statins at the same dosage. (4) Essential hypertension: Code(s): I10 - Essential (primary) hypertension Plan: Blood pressure is stable. Continue medications at the same dosage. Counseling on the importance of diet and exercise done. A screening colonoscopy has been ordered. Coding Level of Care Code Est Pt Level 4 (21914) Complex EM visit Add On G2211 Diagnoses Lumbar radiculopathy M54.16 Class 2 severe obesity with body mass index (BMI) of 35 to 39.9 with serious comorbidity E66.01 Hypercholesterolemia E78.00 Essential hypertension I10
[2024-05-10 08:59] VITALS: BP 140/80; PULSE 56; O2SAT 96; BMI 34.0
== END 2024-05-10 10:13 | disposition home or self-care (01) ==
PROVIDERS: PCP Internal Medicine; Visit Provider Internal Medicine
DX: M54.16 Radiculopathy, lumbar region (principal); E66.01 Morbid (severe) obesity due to excess calories; Z68.34 Body mass index [BMI] 34.0-34.9, adult; E78.00 Pure hypercholesterolemia, unspecified; I10 Essential (primary) hypertension
CPT/HCPCS: 99214

== ENCOUNTER 2024-05-28 10:52 | Outpatient (AMB) | payer OTHER, SELFPAY ==
--- NOTE | 2024-05-28 11:26 | A.OFFVIS_ITS ---
Vital Signs 05/28/24 11:28 Height 5 ft 4 in Weight 198 lb BMI 34.0 BP 130/76 Blood Pressure Location Rt brachial Position Sitting Respiration 14 Pulse 77 Pulse Source Pulse Oximeter Pulse Oximetry (%) 97 Oxygen Delivery Method Room Air Intake Visit Reasons: Discuss MRI Results Allergies ibuprofen Allergy (Intermediate, Verified 06/15/24 09:18) Hives salbutamol Allergy (Intermediate, Uncoded 05/28/24 11:30) Palpitations Medication List - Last Reconciled 05/28/24 by Indiana Thomas LPN clopidogrel (Plavix) 75 mg PO DAILY fluticasone propionate 50 mcg/actuation 2 sprays intranasal DAILY 30 days ipratropium bromide 17 mcg/actuation (Atrovent HFA) 2 puffs inhalation Q6H PRN 30 days ipratropium bromide 2.5 mL inhalation Q6H PRN losartan 100 mg PO DAILY montelukast (Singulair) 10 mg PO BEDTIME 30 days rosuvastatin 40 mg PO DAILY HPI HPI Discuss MRI Results: Details: 58-year-old female who presents today to the office for a discuss of MRI scan result. She reports feeling a numb sensation in her lower back and has difficulty walking. She noticed occasional sharp stabbing pain in her lower back. She states that the pain is localized in the low back region and radiates down to her legs. The pain is worse on the right side. Her MRI scan of the lower back was reviewed today in the office and showed issues at L3, L4, and L5 regions. She has not done any physical therapy. She states that she has not received any call to schedule an appointment. She reports pain and pressure on both sides in the cervical region that radiates upward to her head. FORMERLY [facility], [facility]–1983 Medical History Back pain Allergic Class 2 severe obesity with body mass index (BMI) of 35 to 39.9 with serious comorbidity Chronic allergic rhinitis Atelectasis Low back pain Hypercholesterolemia Essential hypertension Asthma History of benign breast biopsy Surgical History (Updated 06/15/24 @ 09:57 by MEKA Ruiz) History of lumpectomy of left breast H/O: hysterectomy History of back surgery History of cystostomy Family History Maternal Aunt History of breast cancer Ovarian cancer Social History Housing: House Alcohol intake: never Patient Tobacco Use Status: Never used Tobacco e-Cigarette/Vaping Use: Never Used Second Hand Smoke Exposure: No service: No Current occupational status: unemployed Cognitive needs: No Hearing needs: No Vision needs: No Review of Systems Const All systems reviewed & are unremarkable except as noted in HPI and below Physical Exam Vital Signs: Last Vital Signs Pulse 77 05/28/24 11:28 Resp 14 05/28/24 11:28 BP 130/76 05/28/24 11:28 Pulse Ox 97 05/28/24 11:28 Oxygen Delivery Method Room Air 05/28/24 11:28 BMI result Body Mass Index 34.0 General: Appears afebrile. Alert and oriented. Mood and affect appropriate. Follows and participates in conversation appropriately. Respiratory effort is unlabored. Able to transition from sit to stand unassisted. Ambulates with bilaterally normal heel strike and toe off. Axial loading and lumbar flexion reproduces lower back pain. Results Reviewed Results Reviewed: 04/09/24: MR LUMBAR SPINE WITHOUT CONTRAST FINDINGS: There is slight grade 1 retrolisthesis of L3 on L4. Alignment is otherwise normal. Vertebral heights are preserved. Type I degenerative endplate changes at L4-L5. Mixed predominantly type II degenerative endplate changes at L5-S1. There is loss of intervertebral disc height and T2 signal intensity at L3-L4, L4-L5, and L5-S1. The tip of the conus medullaris is located at L2. No mass effect on the conus. Visualized distal cord signal intensity is normal. At L1-L2 annular contour is normal. No canal or neuroforaminal compromise. At L2-L3 annular contour is normal. No canal or neuroforaminal compromise. At L3-L4 there are chronic changes of a left hemilaminectomy. There is a bulging disc. Bilateral facet degenerative change. No canal stenosis. Subtle abutment of the left traversing L4 nerve roots. No foraminal nerve root compression. At L4-L5 there are chronic changes of a right hemilaminectomy. There is a bulging disc. Bilateral facet degenerative changes. No canal stenosis. Subtle abutment of both traversing L5 nerve roots. No foraminal nerve root compression. At L5-S1 there is a bulging disc. Bilateral facet degenerative change. No canal stenosis. No mass effect on the traversing or foraminal nerve roots. Limited visualization of the retroperitoneal anatomy reveals no abnormal finding. Psoas and paraspinal muscle groups are symmetric. IMPRESSION: There are chronic changes of a left hemilaminectomy at L3-L4 and a right hemilaminectomy at L4-L5. No evidence of recurrent disc herniation. There is multilevel degenerative spondylosis of the lumbar spine with slight grade 1 retrolisthesis of L3 on L4. No canal stenosis. Subtle abutment of the left traversing L4 nerve roots at L3-L4 and both traversing L5 nerve roots at L4-L5. Otherwise no substantial mass effect on the traversing or foraminal nerve roots elsewhere within the lumbar spine. Assessment & Plan Assessment & Plan (1) Cervical spondylosis: Code(s): M47.812 - Spondylosis without myelopathy or radiculopathy, cervical region Category: Medical (2) Post laminectomy syndrome: Code(s): M96.1 - Postlaminectomy syndrome, not elsewhere classified Category: Medical (3) Cervical radicular pain: Code(s): M54.12 - Radiculopathy, cervical region Category: Medical Plan We will schedule her for BVN ablation at L4-L5-S1 level. Discussed the risks and benefits of the procedure with the patient in detail. All questions were answered. The patient is on board with the plan. Justification for interventional therapy: ? Patient with average pain > 6/10. ? Patient has exhausted conservative therapy. ? Patient unable to tolerate physical therapy due to pain. . Patient has a good understanding of their pain condition and has appropriate mental and social support. I discussed doing physical therapy prior to getting the MRI scan for cervical region pain. She is inclined to get an MRI scan first. So, I ordered an MRI scan of the cervical spine today. The patient will follow up after the MRI scan for review. Scribed for Dr. Pagan by Victor Manuel Zurita, medical collections specialist, on 05/28/2024. I, Dr. Pagan, have personally reviewed and agree with the information entered by the scribe. Orders: Orders MR cervical spine wo con 05/28/24 M54.12 - Radiculopathy, cervical region Coding Level of Care Code Est Pt Level 3 (66741) Diagnoses Cervical spondylosis M47.812 Post laminectomy syndrome M96.1 Cervical radicular pain M54.12
[2024-05-28 11:28] VITALS: BP 130/76; PULSE 77; RESP 14; O2SAT 97; BMI 34.0
== END 2024-05-28 11:52 | disposition home or self-care (01) ==
LOC: HO.PMC 10:52
PROVIDERS: PCP Internal Medicine; Visit Provider Internal Medicine
DX: M47.812 Spondylosis without myelopathy or radiculopathy, cervical region (principal); M96.1 Postlaminectomy syndrome, not elsewhere classified; M54.12 Radiculopathy, cervical region
CPT/HCPCS: 99213

== ENCOUNTER → 2024-05-28 10:52 | Outpatient (BNVA) | payer OTHER, SELFPAY | PROVIDERS: PCP Internal Medicine; Visit Provider Internal Medicine ==

== ENCOUNTER 2024-06-15 09:11 | Outpatient (AMB) | payer OTHER, SELFPAY ==
--- NOTE | 2024-06-15 09:16 | A.OFFVIS_ITS ---
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 Intake Note: Last pap 3-4 yrs negative hx pt c/o overactive bladder Ana Paula Technical Business Analyst Required: Yes Technical Business Analyst Language: Suction Dredge Dumping Supervisor Services: Technical Business Analyst Present (in person) Technical Business Analyst Name: Janna ACKERMAN Automotive Electrician: Automotive Electrician Present (Janna ACKERMAN) Accompanied by: Spouse Allergies ibuprofen Allergy (Intermediate, Verified 06/15/24 09:18) Hives salbutamol Allergy (Intermediate, Uncoded 05/28/24 11:30) Palpitations Post menopausal: Yes HPI Comments Details: She is a 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 She is doing well with no concerns. She reports stress incontinence. Attempting to eat a healthy diet with calcium and vitamin D, limited exercise due to back issues. Currently sexually active. Denies any vaginal dryness or irritation. History of hysterectomy due to fibroids. Last mammogram; 2023. Colonoscopy consult appt. is booked. Denies any family history of colon cancer. FH breast and ovarian cancer. [facility] Medical History Back pain Allergic Class 2 severe obesity with body mass index (BMI) of 35 to 39.9 with serious comorbidity Chronic allergic rhinitis Atelectasis Low back pain Hypercholesterolemia Essential hypertension Asthma History of benign breast biopsy Surgical History (Updated 06/15/24 @ 09:57 by MEKA Ruiz) History of lumpectomy of left breast H/O: hysterectomy History of back surgery History of cystostomy Family History Maternal Aunt History of breast cancer Ovarian cancer Social History Housing: House Alcohol intake: never Patient Tobacco Use Status: Never used Tobacco e-Cigarette/Vaping Use: Never Used Second Hand Smoke Exposure: No service: No Current occupational status: unemployed Cognitive needs: No Hearing needs: No Vision needs: No Female Reproductive History Menstrual Menopause type: natural Total pregnancies: 1 Full term: 1 Number of Living Children: 1 Date of Mammogram: 11/18/23 (Birad 1) Review of Systems Const All systems reviewed & are unremarkable except as noted in HPI and below Reports as per HPI Eyes Reports no additional complaints ENT Reports no additional complaints Card Reports no additional complaints Resp Reports no additional complaints GI Reports as per HPI and Reports no additional complaints Reports as per HPI Musc Reports no additional complaints Skin/Breast Reports as per HPI Neuro Reports no additional complaints Psych Reports no additional complaints Endo Reports no additional complaints Gama/Lymph Reports no additional complaints Aller/Immun Reports no additional complaints Physical Exam Vital Signs: Last Vital Signs BP 134/84 06/15/24 09:22 BMI result Body Mass Index 34.0 Const General: cooperative, healthy appearing, no acute distress, well developed and alert Orientation/consciousness: patient oriented x3 HEENT Head: Yes normal to inspection Eyes General: appearance normal, both eyes and all related structures Neck Neck: Yes normal visual inspection Thyroid: Thyroid normal Chest Other: Left breast mass 11 o'clock position, scar Chest palpation & inspection: normal inspection of the chest and other (no puckering, dimpling, peau de orange, retraction, discharge, masses) Breast/axilla inspection: normal inspection of the breasts Breast/axilla palpation: normal palpation of the breasts Resp Effort & Inspection: normal respiratory effort GI Inspection: Yes normal to inspection Palpation (GI): Soft to palpation Rectal Exam - Female: deferred General: Yes bladder normal to palpation External Female Exam: normal external appearance and normal appearance of the urethra Speculum Exam - Vagina: normal appearance of the vagina, normal palpation, normal vaginal discharge and vagina atrophic Speculum Exam - Cervix: Cervix absent (Vaginal cuff no lesions or nodules) Bimanual exam- vagina & uterus: normal bimanual exam, normal palpation, bladder normal to palpation and uterus absent Bimanual Exam- Adnexa, other: no masses Skin General skin exam: no rashes or lesions noted Rashes: no rashes Neuro General: patient oriented x3 Cognition (Neuro): normal cognition Extrem General: Yes normal to inspection Psych Attitude: cooperative Thought process: Normal thought process present Assessment & Plan Assessment & Plan (1) Urinary incontinence: Code(s): R32 - Unspecified urinary incontinence Category: Medical Qualifiers: Urinary Incontinence type: unspecified incontinence Qualified Code(s): R32 - Unspecified urinary incontinence (2) Breast mass: Code(s): N63.0 - Unspecified lump in unspecified breast Category: Medical Qualifiers: Breast mass location: upper inner quadrant Laterality: left Qualified Code(s): N63.22 - Unspecified lump in the left breast, upper inner quadrant Plan Discussed: Current recommendations for pap smears per ASCCP guidelines. Breast awareness, periodic self breast exams and yearly mammogram. Maintain a healthy lifestyle, well balanced diet including Calcium 1,200 mg and Vitamin D 600 IU daily, and routine exercise. Plan diagnostic mammogram and left breast ultrasound due to left breast mass. Follow up pending results. Referral placed to urology. Patient verbalizes understanding and agrees to the plan of care. She was given opportunity to ask questions and all questions were answered to the best of my ability. 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 This note is constructed using voice recognition software. While every effort has been made to ensure accuracy, skelp processor errors may have been included. Orders: Orders US breast LT complete Today N63.0 - Unspecified lump in unspecified breast MM tomosynthesis diagnostic BI Today N63.0 - Unspecified lump in unspecified breast, Z12.31 - Encounter for screening mammogram for malignant neoplasm of breast Referrals Urology Referral R32 - Unspecified urinary incontinence Coding Level of Care Code New Pt Prev Care 40-64y(56327) Diagnoses Urinary incontinence, unspecified type R32 Urinary Incontinence type: unspecified incontinence Mass of upper inner quadrant of left breast N63.22 Breast mass location: upper inner quadrant Laterality: left
[2024-06-15 09:22] VITALS: BP 134/84; BMI 34.0
== END 2024-06-15 09:52 | disposition home or self-care (01) ==
PROVIDERS: PCP Internal Medicine; Visit Provider Advanced Practice Midwife
DX: Z01.419 Encounter for gynecological examination (general) (routine) without abnormal findings (principal); N63.22 Unspecified lump in the left breast, upper inner quadrant; R32 Unspecified urinary incontinence
CPT/HCPCS: 99386

== ENCOUNTER → 2024-06-15 09:11 | Outpatient (BNVA) | payer OTHER, SELFPAY | PROVIDERS: PCP Internal Medicine; Visit Provider Advanced Practice Midwife ==

== ENCOUNTER 2024-06-26 18:15 | Outpatient (REF) | payer OTHER, SELFPAY ==
--- NOTE | ~2024-06-26 | MR_ITS ---
EXAMINATION: MR CERVICAL SPINE WITHOUT CONTRAST CLINICAL INFORMATION: 58-year-old with self-reported pain radiating to the right shoulder. Radiculopathy, cervical region. COMPARISON: None available. TECHNIQUE: MRI of the cervical spine was obtained using routine sequences without contrast. FINDINGS: Alignment: Mild cervicothoracic levocurvature centered at C7-T1. There is straightening of the cervical spine in the sagittal plane. Craniocervical Junction/C1-C2 Articulations: Intact and aligned. Visualized Intracranial Structures: Within normal limits. Vertebral Bodies: There is mild chronic loss of height with slight anterior wedging of the T2, T3 and T4 vertebral bodies without retropulsion. Otherwise, vertebral body heights are well-maintained. Disc Spaces and Endplates: The intervertebral disc space heights are well-maintained throughout the cervical spine. There is no significant spondylosis. There is mild loss of intradiscal T2-weighted signal at the levels between C3-C4 and C6-C7 inclusive. There is a Schmorl's node along the superior endplate of T2. Bone Marrow: No suspicious marrow-replacing process or bone marrow edema. There is a 1.3 cm benign vertebral hemangioma within the anterior aspect of the C6 vertebral body asymmetric to the right. C2-C3: No disc herniation or canal stenosis. No significant DJD, canal or neuroforaminal stenosis. C3-C4: Shallow broad-based central disc protrusion, with [id number] flattening of the ventral dural sac without cord impingement or canal stenosis. No significant DJD or neuroforaminal stenosis. C4-C5: Broad-based central disc protrusion, with flattening of the ventral dural sac without cord impingement or canal stenosis. Uncinate process spurring is noted predominantly on the right with moderate right-sided neural foraminal narrowing. C5-C6: Shallow central disc protrusion asymmetric to the right with mild indentation of the ventral thecal sac without cord impingement or canal stenosis. Uncinate process spurring is noted with minor facet spurring and minor foraminal narrowing on the right. C6-C7: No disc herniation or canal stenosis. No significant DJD or neuroforaminal stenosis. Small perineural cysts noted in the left neural foramen. C7-T1: No disc herniation or canal stenosis. Mild left-sided facet joint arthropathy noted with no significant neural foraminal stenosis. Perineural cysts noted in both neural foramina. Spinal Cord: The cervical and visualized upper thoracic spinal cord is normal in morphology, caliber and signal intensity. Extracranial Soft Tissues: The visualized extracranial head/neck soft tissues are unremarkable within the limitations of the study. Signal voids are seen within the visualized major neck vessels. MR/MR cervical spine wo con IMPRESSION: 1. Mild cervicothoracic levocurvature centered at C7-T1 with straightening of the cervical spine in the sagittal plane. 2. Broad-based central disc protrusions at C3-C4, C4-C5 and C5-C6 without spinal cord impingement or canal stenosis. 3. Minor degrees of multilevel DJD with moderate right-sided neural foraminal narrowing at C4-C5 and minor right-sided neural foraminal narrowing at C5-C6. 4. Mild chronic anterior wedging of the T2, T3 and T4 vertebral bodies. Electronically signed by: Stepan Carney MD 08/22/2024 01:39 PM [facility]
== END 2024-06-26 18:16 | disposition home or self-care (01) ==
LOC: HO.MRI 18:15
PROVIDERS: PCP Internal Medicine; Visit Provider Internal Medicine
DX: M54.12 Radiculopathy, cervical region (principal)
CPT/HCPCS: 72141

== ENCOUNTER 2024-07-12 10:14 | Outpatient (REF) | payer OTHER, SELFPAY ==
[2024-07-13 23:04] LABS: Mumps Virus IgG Antibody >300.00 AU/mL; Rubeola IgG (Measles) >300.00 AU/mL
[2024-07-20 23:09] LABS: Polio 3 Titer >1:128
== END 2024-07-12 10:15 | disposition home or self-care (01) ==
LOC: HO.LAB 10:14
PROVIDERS: Internal Medicine; PCP Internal Medicine; Visit Provider Internal Medicine
DX: Z23 Encounter for immunization (principal)
CPT/HCPCS: 36415; 86382; 86735; 86762; 86765; 86787

== ENCOUNTER 2024-08-08 09:16 | Outpatient (AMB) | payer OTHER, SELFPAY ==
--- NOTE | 2024-08-08 09:49 | MHC.PC.OV ---
Vital Signs 08/08/24 09:50 Height 5 ft 4 in Weight 199 lb 4 oz BMI 34.2 BP 124/80 Blood Pressure Location Lt brachial Position Sitting Pulse 70 Pulse Source Pulse Oximeter Pulse Oximetry (%) 97 Oxygen Delivery Method Room Air Intake Visit Reasons: 3 MONTH FOLLOW UP Intake Note: Patient is here to follow up on Asthma, HTN, Lumbar radiculopathy . Head Of Design Required: Yes Head Of Design Language: Faroese Information Interpreted: non-clinical & clinical Radiator Core Tester: Present Accompanied by: Spouse Allergies ibuprofen Allergy (Intermediate, Verified 08/08/24 09:50) Hives salbutamol Allergy (Intermediate, Uncoded 08/08/24 09:50) Palpitations Tobacco use date assessed: 08/08/24 Dental Screening Dental Screen Date: 10/06/23 [facility] Medical History (Updated 07/12/24 @ 09:55 by Kylie Manning MD) Back pain Allergic Class 2 severe obesity with body mass index (BMI) of 35 to 39.9 with serious comorbidity Chronic allergic rhinitis Atelectasis Low back pain Hypercholesterolemia Essential hypertension Asthma History of benign breast biopsy Surgical History History of lumpectomy of left breast H/O: hysterectomy History of back surgery History of cystostomy Family History Maternal Aunt History of breast cancer Ovarian cancer Social History Housing: House Alcohol intake: never Patient Tobacco Use Status: Never used Tobacco e-Cigarette/Vaping Use: Never Used Second Hand Smoke Exposure: No service: No Current occupational status: unemployed Cognitive needs: No Hearing needs: No Vision needs: No Questionnaire Thrive Questionnaire Date Thrive assessed: 10/06/23 AFSHAN-7 AMB Questionnaire AFSHAN-7 Date AFSHAN - 7 assessed: 10/06/23 Source: Developed by Drs. German Velez, Cecily Lew, Bay Cruz and colleagues, with an educational crystal from [employer]. Physical exam (Primary Care) Vital Signs: Last Vital Signs Pulse 70 08/08/24 09:50 BP 124/80 08/08/24 09:50 Pulse Ox 97 08/08/24 09:50 Oxygen Delivery Method Room Air 08/08/24 09:50 BMI result Body Mass Index 34.2 Tobacco/Smoking Status: Tobacco use Status Tobacco use date assessed 08/08/24 08/08/24 09:55 Patient Tobacco Use Status Never used Tobacco 08/08/24 09:55 e-Cigarette/Vaping Use Never Used 08/08/24 09:55 Thrive Assessment: Date of Thrive Assessment Date Thrive assessed 10/06/23 08/08/24 09:55 Const General: cooperative and healthy appearing Nutritional Appearance: well nourished Orientation/consciousness: patient oriented x3 Limitations: no limitations HENMT Head: Yes normal to inspection Eyes General: appearance normal, both eyes and all related structures Neck Neck: Yes normal visual inspection Chest Chest palpation & inspection: normal palpation of entire chest wall Resp Effort & Inspection: normal respiratory effort Neuro General: patient oriented x3 Coding Level of Care Code Est Pt Level 4 (74271) Complex EM visit Add On [id number] Diagnoses Post laminectomy syndrome M96.1 Assessment & Plan Assessment & Plan (1) Post laminectomy syndrome: Code(s): M96.1 - Postlaminectomy syndrome, not elsewhere classified Category: Medical Plan: See below. Medications: Refilled losartan 100 mg PO DAILY 90 tabs 0RF I10 - Essential (primary) hypertension rosuvastatin 40 mg PO DAILY 90 tabs 0RF E78.00 - Pure hypercholesterolemia, unspecified Scribe Plan - Not visible on output: History of Present Illness The patient is a 58 year old female presenting with a follow-up visit for multiple ongoing health concerns. She has a history of lower back pain, for which she visited a pain clinic and underwent an MRI of the cervical spine; results pending. The pain has been significant, restricting her ability to walk and engage in activities. She has allergies, suspected from local environmental factors, but awaits results from a previously ordered allergy panel by Dr. Barrera, which is yet to be received. Ms. Morales has a scheduled appointment in August for further follow-up regarding her allergies. Additionally, she has a mammogram appointment on the upcoming Tuesday for routine screening. Social History - Residence: Lives at home - Holiday Plans: Staying at home for Thanksgiving with a osteology teacher Review of Systems - Musculoskeletal: Reports a significant level of lower back pain Physical Exam - General- Examined without any specific physical exam findings noted during the visit. Results Plan - Lower Back Pain: Continue to await results for previously conducted MRI of the cervical spine and follow up on procedure pending from the pain clinic. - Allergies: Await allergy panel results as ordered by Dr. Barrera. Ensure follow-up is arranged for further management. - Mammogram: Ensure appointment is kept on the upcoming Tuesday for the scheduled mammogram. - Vaccinations: COVID-19 and influenza vaccinations have been completed; no further action required. Patient was informed and verbally consented to the use of an ambient scribe for clinic note documentation during this visit. Discussion Notes During this visit, we reviewed the patient?s ongoing issues, including lower back pain and allergies. I advised continuing to monitor for the MRI results and emphasized the importance of completing the pending procedure from the pain clinic for lower back pain relief. We discussed the absence of results from the allergy panel and arranged for a follow-up in August to address this. I confirmed the mammogram appointment for Tuesday and advised keeping the appointment. Preventative practices such as her flu and COVID-19 shots are up to date. The plan is to re-evaluate in three months, or sooner if conditions change or procedures are completed. Patient Instructions - Attend the mammogram appointment on Tuesday as scheduled. - Follow-up with the allergy results in August. - Continue to check in with the pain clinic regarding pending procedures. - Return to the office sooner if symptoms change or new issues arise. - Maintain immunization schedule as completed.
[2024-08-08 09:50] VITALS: BP 124/80; PULSE 70; O2SAT 97; BMI 34.2
== END 2024-08-08 10:06 | disposition home or self-care (01) ==
PROVIDERS: PCP Internal Medicine; Visit Provider Internal Medicine
DX: M96.1 Postlaminectomy syndrome, not elsewhere classified (principal)

== ENCOUNTER → 2024-08-08 09:16 | Outpatient (BNVA) | payer OTHER, SELFPAY | PROVIDERS: PCP Internal Medicine; Visit Provider Internal Medicine ==

== ENCOUNTER 2024-08-08 13:08 | Outpatient (AMB) | payer OTHER, SELFPAY ==
--- NOTE | 2024-08-08 13:13 | MHC.OFFVIS ---
Intake Visit Reasons: Colonoscopy Screening Intake Note: Relevant Flags or Indicators ? Requires Pricing Strategist? Sabi Tobar presents in office today for a scheduled colonoscopy consultation. Routine, initial. CC; Pt saw PCP this morning who reviewed PFSH, Meds, and Allergies. Confirmed w/ pt. Relevant GI Sx as reported per pt? None ? Hx of any recent surgeries? None Pricing Strategist Required: Yes Pricing Strategist Services: Pricing Strategist Offered & Declined Pricing Strategist Name: Family Accompanied by: Family/Other Allergies ibuprofen Allergy (Intermediate, Verified 08/08/24 13:14) Hives salbutamol Allergy (Intermediate, Uncoded 08/08/24 09:50) Palpitations HPI HPI Colonoscopy Screening: Details: 58 year old? male here today for pre colonoscopy screening.? Patient was sent to us by her PCP.? This is her first colonoscopy screening.? Patient denies any gastrointestinal symptoms in the past or at present.? Denies any personal or family history of gastrointestinal disease, colon polyps, or CRC.? Denies history of difficulty with sedation or anesthesia in the past.? Negative for history of sleep apnea.? Denies any history of cardiac, renal, pulmonary, or hepatic disease.?? No history of infectious? diseases like hepatitis A, B, C, HIV or tuberculosis.? Patient is not on any anticoagulation PFSH Medical History Back pain Allergic Class 2 severe obesity with body mass index (BMI) of 35 to 39.9 with serious comorbidity Chronic allergic rhinitis Atelectasis Low back pain Hypercholesterolemia Essential hypertension Asthma History of benign breast biopsy Surgical History History of lumpectomy of left breast H/O: hysterectomy History of back surgery History of cystostomy Family History Maternal Aunt History of breast cancer Ovarian cancer Social History Housing: House Alcohol intake: never Patient Tobacco Use Status: Never used Tobacco e-Cigarette/Vaping Use: Never Used Second Hand Smoke Exposure: No service: No Current occupational status: unemployed Cognitive needs: No Hearing needs: No Vision needs: No Review of Systems Const Denies weight gain and Denies weight loss ENT Reports no additional complaints, Denies dysphagia and Denies odynophagia Card Reports no additional complaints Resp Reports no additional complaints GI Denies abdominal pain, Denies belching, Denies melena, Denies bloating, Denies change in bowel habits, Denies dysphagia, Denies excessive flatus, Denies dyspepsia, Denies heartburn, Denies diarrhea, Denies loose stools, Denies nausea, Denies odynophagia and Denies vomiting Musc Reports no additional complaints Neuro Reports no additional complaints Psych Reports no additional complaints Endo Reports no additional complaints Physical Exam Const General: healthy appearing, no acute distress and well developed Nutritional Appearance: well nourished Orientation/consciousness: patient oriented x3 Resp Effort & Inspection: normal respiratory effort, able to speak in complete sentences, no tracheal deviation and symmetric chest movement Auscultation: clear to auscultation bilaterally Cardio Rate: regular rate GI Inspection: Yes normal to inspection and No distended Palpation (GI): Soft to palpation, not firm, nontender and No hepatosplenomegaly present Auscultation: normal bowel sounds General: Yes no CVA tenderness Back/Spine/Pelvis Back: no CVA tenderness Skin General skin exam: elasticity normal, turgor normal and dry skin Neuro General: patient oriented x3 Psych Appearance: grossly normal Mental Status: mental status grossly normal Assessment & Plan Assessment & Plan (1) Screen for colon cancer: Code(s): Z12.11 - Encounter for screening for malignant neoplasm of colon Plan Patient denies any GI, cardiac or respiratory symptoms.? Denies any issues with anesthesia in the past.? Denies any history of sleep apnea.? No history infectious diseases in the past or present.? Not on any anticoagulation therapy.? No family or personal history of colon cancer or polyps.? Patient denies melena, hematochezia, unintentional weight loss or ribbon like stools.? Discussed at length the pre-procedure,? prep, diet & medications as well as what to expect prior, during and after the procedure.?? Stressed the importance of good bowel prep.? Recommended the use of Vaseline or Calmoseptine OTC & baby wipes with bowel movements to promote comfort.? ?Patient verbalizes understanding and agrees to plan of care.? She was given the opportunity to ask questions and all questions answered.? We will see her after the procedure.? Medications: New bisacodyl (Dulcolax (bisacodyl)) take 4 tabs at noon the day before your colonoscopy 20 mg (4 x 5 mg) PO ONCE 4 tabs 0RF 1 day Z12.11 - Encounter for screening for malignant neoplasm of colon polyethylene glycol 3350 (Miralax) As directed by gastroenterology department at [facility] 238 grams PO ONCE 238 grams 0RF Z12.11 - Encounter for screening for malignant neoplasm of colon Coding Level of Care Code New Pt Level 3 (54361) Diagnoses Screen for colon cancer Z12.11 Time Spent (min) 40 Comment 30 minutes spent with patient and additional 10 minutes spent reviewing her records
== END 2024-08-08 13:54 | disposition home or self-care (01) ==
PROVIDERS: PCP Internal Medicine; Visit Provider Nurse Practitioner Family
DX: Z12.11 Encounter for screening for malignant neoplasm of colon (principal); Z01.818 Encounter for other preprocedural examination
CPT/HCPCS: S0285

== ENCOUNTER 2024-08-16 09:14 | Outpatient (AMB) | payer OTHER, SELFPAY ==
--- NOTE | 2024-08-16 09:16 | A.OFFVIS_ITS ---
Intake Visit Reasons: urinary incontinence Intake Note: New Patient presents for initial visit for urinary incontinence and leakage Urology Medications: none Blood Thinner: none PVR: 62ml's Teacher Physically Impaired Required: Yes Accompanied by: Unknown Allergies ibuprofen Allergy (Intermediate, Verified 08/16/24 10:01) Hives salbutamol Allergy (Intermediate, Uncoded 08/16/24 10:01) Palpitations Medication List - Last Reconciled 08/16/24 by TYRA Lopez bisacodyl (Dulcolax (bisacodyl)) 20 mg (4 x 5 mg) PO ONCE 1 day estradiol 0.01%(0.1mg/gram) (Estrace) 1 g vaginal 3XW 90 days fluticasone propionate 50 mcg/actuation 2 sprays intranasal DAILY 30 days ipratropium bromide 17 mcg/actuation (Atrovent HFA) 2 puffs inhalation Q6H PRN 30 days ipratropium bromide 2.5 mL inhalation Q6H PRN losartan 100 mg PO DAILY mirabegron ER (Myrbetriq) 25 mg PO DAILY 303 days montelukast (Singulair) 10 mg PO BEDTIME 30 days polyethylene glycol 3350 (Miralax) 238 grams PO ONCE rosuvastatin 40 mg PO DAILY HPI Comments Details: Ekaterina is a very pleasant Portuguese-speaking 58-year-old female patient of Dr. Joseph who was accompanied by her at today's office visit. She has a past medical history of back pain, obesity, chronic allergic rhinitis, hypercholesteremia, hypertension, asthma, and benign breast biopsy. She presents to the office today as a new patient for ongoing lower urinary tract symptoms she has been experiencing. She reports for many years she has been experiencing episodes of stress incontinence however feels symptoms have worsened and she now experiences mixed urinary incontinence. When asked she does have a history of one delivery of an average size baby of approximately 7 lb. She also notes episodes of vaginal dryness. She otherwise denies changes to urinary stream, flank pain, fever, and or chills. In office urinalysis results reviewed with the patient today. PVR 62 mL. We discussed further treatment options of mixed urinary incontinence as well as further workup to include retroperitoneal ultrasound. She otherwise offers no other issues or concerns at this time. [facility] Medical History Back pain Allergic Class 2 severe obesity with body mass index (BMI) of 35 to 39.9 with serious comorbidity Chronic allergic rhinitis Atelectasis Low back pain Hypercholesterolemia Essential hypertension Asthma History of benign breast biopsy Surgical History History of lumpectomy of left breast H/O: hysterectomy History of back surgery History of cystostomy Family History Maternal Aunt History of breast cancer Ovarian cancer Social History Housing: House Alcohol intake: never Patient Tobacco Use Status: Never used Tobacco e-Cigarette/Vaping Use: Never Used Second Hand Smoke Exposure: No service: No Current occupational status: unemployed Cognitive needs: No Hearing needs: No Vision needs: No Review of Systems Const All systems reviewed & are unremarkable except as noted in HPI and below Physical Exam Const General: cooperative, healthy appearing, comfortable, no acute distress, well developed, alert and awake Orientation/consciousness: patient oriented x3 Limitations: no limitations HEENT Head: Yes normal to inspection, Yes normocephalic and Yes atraumatic Ears: hearing grossly normal bilaterally Eyes General: appearance normal, both eyes and all related structures Neck Neck: Yes normal visual inspection and Yes trachea midline Chest Chest palpation & inspection: normal inspection of the chest Resp Effort & Inspection: normal respiratory effort and able to speak in complete sentences Cardio Rate: regular rate GI Inspection: Yes normal to inspection General: Yes no CVA tenderness Back/Spine/Pelvis Back: no CVA tenderness Skin General skin exam: no rashes or lesions noted Neuro General: patient oriented x3 Extrem General: Yes normal to inspection Psych Appearance: grossly normal and well kempt Mental Status: mental status grossly normal Speech and movement: Normal speech and movement present and Clear speech present Affect: normal affect Attitude: cooperative Thought process: Normal thought process present Thought content: Normal thought content present Insight: Fair insight present (Psych) Judgement: Fair judgement present (Psych) Office Procedures Post Void Residual Post Residual Void Post Void Residual (PVR): 62 13690-Uarw Void Residual by ultrasound Results AMB Urinalysis, Automated UA Leukoctes 70 Linus/uL Last Edit by [email or web address] on 08/16/24 09:33 UA Nitrite Last Edit by [employer] on 08/16/24 09:33 UA Urobilinogen 0.2 mg/dL Last Edit by [employer] on 08/16/24 09:33 UA Protein 0 mg/dL Last Edit by [email or web address] on 08/16/24 09:33 UA pH 6.0 Last Edit by [employer] on 08/16/24 09:33 UA Blood 0 Reynaldo/uL Last Edit by [employer] on 08/16/24 09:33 UA Specific [place] 1.015 Last Edit by [employer] on 08/16/24 09:33 UA Ketone Last Edit by [employer] on 08/16/24 09:33 UA Bilirubin 0 mg/dL Last Edit by [email or web address] on 08/16/24 09:33 UA Glucose 0 mg/dL Last Edit by [employer] on 08/16/24 09:33 Results Reviewed Results Reviewed: Laboratory Last Values Urine pH (Auto) 6.0 08/16/24 09:31 Specific [place] (Auto) 1.015 08/16/24 09:31 Urine Protein (Auto) 0 mg/dL 08/16/24 09:31 Glucose (UA)(Auto) 0 mg/dL 08/16/24 09:31 Urine Blood (Auto) 0 Reynaldo/uL 08/16/24 09:31 Urine Bilirubin (Auto) 0 mg/dL 08/16/24 09:31 Urine Urobilinogen (Auto) 0.2 mg/dL 08/16/24 09:31 Leukocyte Esterase (Auto) 70 Linus/uL 08/16/24 09:31 Assessment & Plan Assessment & Plan (1) Urinary incontinence: Code(s): R32 - Unspecified urinary incontinence Category: Medical Qualifiers: Urinary Incontinence type: unspecified incontinence Qualified Code(s): R32 - Unspecified urinary incontinence Plan In office urinalysis results reviewed the patient today; as noted above. PVR 62 mL. We discussed potential causes of mixed urinary incontinence as well as further treatment options. We discussed in office urodynamics, pelvic floor therapy, oral therapy, and other noninvasive modalities; we discussed risks and benefits of these interventions. Will obtain retroperitoneal ultrasound for further assessment evaluation. Start Myrbetriq as discussed and prescribed. Start Estrace cream as discussed and prescribed. Follow-up in 1-3 months with imaging and PVR; or sooner with any issues, concerns, and or questions. Orders: Orders AMB Urinalysis Automated Today Z13.9 - Encounter for screening, unspecified AMB Post Void Residual by ultrasound Today R32 - Unspecified urinary incontinence US retroperitoneal comp Today R32 - Unspecified urinary incontinence Medications: New estradiol 0.01%(0.1mg/gram) (Estrace) Apply pea-sized amount to urethra 1 time per day x1 month; then 3 times per week thereafter 1 g vaginal 3XW 42.5 grams 3RF 90 days mirabegron ER (Myrbetriq) 25 mg PO DAILY 303 tabs 1RF 303 days N30.10 - Interstitial cystitis (chronic) without hematuria, N32.81 - Overactive bladder, R35.1 - Nocturia, R39.15 - Urgency of urination Patient Instructions: The patient had an opportunity to ask questions regarding the treatment plan. All questions were answered. Physical exam, labs, and imaging were discussed and reviewed in detail. As well as risks, benefits, and discussion of treatment choices. No major barriers to understanding were identified. The patient expressed understanding and agreement with the above treatment plan. The patient was made aware they should contact our office by phone for worsening of their current condition, the appearance of new symptoms, or with any questions or concerns. Compliance is encouraged with any medications and follow up testing that is ordered. It is a privilege to be allowed the opportunity to participate in? your urological care.? Again, if you have any questions or concerns If you have any questions or concerns please do not hesitate to contact me. The office is [phone]. This note is constructed using voice recognition software. While every effort has been made to ensure accuracy home care provider errors may have been included. Yours sincerely, TYRA Lopez Coding Level of Care Code New Pt Level 4 (88941) Diagnoses Urinary incontinence, unspecified type R32 Urinary Incontinence type: unspecified incontinence CPT Codes Post Residual Void - PVR CPT Code: 47629-Amco Void Residual by ultrasound ([id number])
== END 2024-08-16 10:03 | disposition home or self-care (01) ==
PROVIDERS: PCP Internal Medicine; Visit Provider Nurse Practitioner Family
DX: R32 Unspecified urinary incontinence (principal); Z13.9 Encounter for screening, unspecified
CPT/HCPCS: 99204

== ENCOUNTER → 2024-08-16 09:14 | Outpatient (BNVA) | payer OTHER, SELFPAY | PROVIDERS: PCP Internal Medicine; Visit Provider Nurse Practitioner Family | DX: N39.46 Mixed incontinence (principal); N30.10 Interstitial cystitis (chronic) without hematuria; N32.81 Overactive bladder; R35.1 Nocturia | CPT/HCPCS: 51798; 81003 ==

== ENCOUNTER 2024-09-19 10:45 | Day surgery (SDC) | payer OTHER, SELFPAY ==
--- NOTE | 2024-09-17 14:28 | HO.ANESPROP2 ---
Documented by User: Erna Liu NP 09/17/24 14:28 HPI - Anesthesia Eval Consult details Narrative: 58yo F for Intracept RFA (L4,L5 and S1 Basivertebral Nerve Ablation) PMFSH Active Problems Active Problems: All Active Problems Immunization due (Acute) Breast mass (Acute) Urinary incontinence (Acute) Cervical radicular pain (Acute) Cervical spondylosis (Acute) Post laminectomy syndrome (Acute) Lumbar radiculopathy (Acute) Back pain (Acute) Allergic (Acute) Class 2 severe obesity with body mass index (BMI) of 35 to 39.9 with serious comorbidity (Acute) Chronic allergic rhinitis (Acute) Atelectasis (Acute) Low back pain (Acute) Hypercholesterolemia (Acute) Essential hypertension (Acute) Asthma (Acute) Past Medical History Medical History Back pain Allergic Class 2 severe obesity with body mass index (BMI) of 35 to 39.9 with serious comorbidity Chronic allergic rhinitis Atelectasis Low back pain Hypercholesterolemia Essential hypertension Asthma History of benign breast biopsy Family History Family History Maternal Aunt History of breast cancer Ovarian cancer Surgical History Surgical History History of lumpectomy of left breast H/O: hysterectomy History of back surgery History of cystostomy Social History Social History Housing: House Alcohol intake: never Patient Tobacco Use Status: Never used Tobacco e-Cigarette/Vaping Use: Never Used Second Hand Smoke Exposure: No Use of substances other than those prescribed or required for medical reasons: No Are you DNR?: No Advance Directives: No Advance Directives Information Provided: Yes service: No Current occupational status: unemployed Cognitive needs: No Hearing needs: No Vision needs: No Meds Allergies Allergy/AdvReac Type Severity Reaction Status Date / Time ibuprofen Allergy Intermediate Hives Verified 08/16/24 10:01 salbutamol Allergy Intermediate Palpitation Uncoded 08/16/24 10:01 s Assessment and Plan Assessment Anesthesia Assessment: Chart Reviewed Documented by User: Wendi Lamas MD 09/19/24 13:16 PMF Past Medical History Medical History (Reviewed 08/16/24 @ 10:01 by Latanya Cabrales [facility]) Back pain Allergic Class 2 severe obesity with body mass index (BMI) of 35 to 39.9 with serious comorbidity Chronic allergic rhinitis Atelectasis Low back pain Hypercholesterolemia Essential hypertension Asthma History of benign breast biopsy Family History Family History Maternal Aunt History of breast cancer Ovarian cancer Family history of problems with anesthesia: No Surgical History Surgical History History of lumpectomy of left breast H/O: hysterectomy History of back surgery History of cystostomy History of Problems with Anesthesia: No Social History Social History Housing: House Alcohol intake: never Patient Tobacco Use Status: Never used Tobacco e-Cigarette/Vaping Use: Never Used Second Hand Smoke Exposure: No Use of substances other than those prescribed or required for medical reasons: No Are you DNR?: No Advance Directives: No Advance Directives Information Provided: Yes service: No Current occupational status: unemployed Cognitive needs: No Hearing needs: No Vision needs: No Meds Allergies Allergy/AdvReac Type Severity Reaction Status Date / Time ibuprofen Allergy Intermediate Hives Verified 08/16/24 10:01 salbutamol Allergy Intermediate Palpitation Uncoded 08/16/24 10:01 s Exam Airway Mallampati Class: II TM Dist: >3cm Neck ROM: Full Assessment and Plan Assessment Anesthesia Assessment: Anesthesia Plan Discussed Final Anesthetic Review Family History of Problems with Anesthesia: No History of Problems with Anesthesia: No NPO: Yes ASA Class: III Final Preanesthetic Review: No Changes in Pt Med Stat, Meds/Allgs Chart Reviewed, Consent Obtained/Reviewed and Anes Risks/Benef Reviewed Patient Risk: Intermediate Procedure Risk: Low Anesthetic Plan Anesthetic Plan: GA Disposition: Standard PACU
[2024-09-19] VITALS (7 sets, daily range): BP systolic 130–147; BP diastolic 70–79; PULSE 67–79; RESP 16–17; TEMP 36.2–36.8; O2SAT 94–98; BMI 33.5
[2024-09-19] MEDS: Lactated Ringers 1,000 ML 100 ML IVCONT (12:49)
--- NOTE | 2024-09-19 13:12 | MHC.SHP ---
Pre-Procedural Eval Section A - 24 Hr Update-Section A only Date of Service: 09/19/24 The patient is an INPATIENT: No Changes since office visit: Yes Patient answered all questions The patient has been examined within 24 hours of the surgical procedure. The History & Physical has been completed within 30 days and I have reviewed it.: No Section B - Complete if H&P > 30 days Chief Complaint: Vertebrogenic low back pain Relevant Family History (Specify if Yes): No Relevant Social History: None Present Medications: see Short Stay Collaborative assessment Medical History: No relevant PMH History of Previous Operations: No relevant previous surgery Allergies: Allergies Allergy/AdvReac Type Severity Reaction Status Date / Time ibuprofen Allergy Intermediate Hives Verified 08/16/24 10:01 salbutamol Allergy Intermediate Palpitation Uncoded 08/16/24 10:01 s Review of Systems Sugical H&P ROS: Negative: Constitution, Cardiovascular and Respiratory Exam Surgical H&P Exam: Normal: HEENT, Normal: Heart and Normal: Lungs Plan Diagnosis/Plan: Unchanged I have reviewed the history and physical and performed a pertinent physical examination on my patient. No changes have occurred unless specified. Time Spent With Patient Time: Total time managing care of this patient today ____ minutes.
[2024-09-19 13:15] LABS: MRSA Nasal PCR NEGATIVE (Negative); SA Nasal PCR NEGATIVE (Negative)
--- NOTE | 2024-09-19 13:28 | P.BOP_ITS ---
Brief Operative Note Date of Service: 09/19/24 Pre-op diagnosis: Vertebrogenic low back pain Post-op diagnosis: same Procedure: Basivertebral nerve ablation L4, L5, S1 vertebral bodies (intracept procedure) Surgeon: Bertrand Pagan MD Anesthesia: GETA Was an Hardware Sales Assistant used for this Procedure?: No Estimated blood loss (mL): 50 Pathology: none sent Condition: stable Disposition: PACU
--- NOTE | 2024-09-19 13:29 | P.OP_ITS ---
Operative Note Operative Note Date of Service: 09/19/24 Narrative: Preoperative diagnosis: Vertebrogenic low back pain Postoperative diagnosis: Same Procedure: Basivertebral nerve (BVN) ablation ? Intracept Procedure L4, L5, S1 Procedure Time Out: Patient ID confirmed, correct procedure to be performed, correct site and/or side for procedure as per marked location and correct medication(s), including antibiotic to be used for the procedure. Description of Procedure: After receiving anesthesia in the supine position, the patient was placed prone on the operating room table and all pressure points were appropriately padded. The back was sterilely prepped and draped. The C-arm was sterilely draped and moved into position to visualize the S1 vertebral body in the AP and lateral plane. The C-arm was rotated to a Humphrey view to square off the superior endplate at S1. The C-arm was then rotated to the left approximately 15-20 degrees for an approach to the left S1 pedicle. The skin entry point was identified and infiltrated with 1% lidocaine using a 25-gauge 1- 1/2 inch needle.A skin incision was made with 15 scalpel blade. The introducer cannula with bevel tip was then introduced through the skin, subcutaneous tissue and paraspinal muscle until bony contact was made. The position was checked in the AP and lateral plane. Using a mallet, the trocar was then advanced thru the pedicle to the posterior aspect of the vertebral body using a combination of AP and lateral views to ensure appropriate traversing of the pedicle and no breaching of the pedicle medially. Once the trocar was in the posterior aspect of the S1 vertebral body, the trocar was removed from the cannula and the curved cannula assembly with the nitinol J-stylet was inserted. The spin wheel was rotated counterclockwise permitting excursion of the J-stylet. The curved cannula assembly was then advanced using a mallet in 1-2 mm increments. The J- stylet was observed to traverse the vertebral body in the AP and lateral views. The J-stylet was removed and replaced with the straight stylet to reach the BVN target. Target was reached when the tip of the stylet was 50% anterior of the posterior wall of the S1 in the lateral view (midway between the superior and inferior endplates) and it crossed the midline of the S1 spinous process in the AP view. The stylet was then removed. The bipolar radiofrequency (RF) probe was connected to the generator and then inserted into the introducer cannula in its ablation position. The spin wheel was rotated clockwise to retract the PEEK sleeve to expose the proximal electrode on the radiofrequency probe. The BVN was then ablated using [employer]?s targeted RFG algorithm. While the ablation was occurring at S1, the C-arm was moved to visualize the target at the superolateral aspect of the L4 vertebral body using the approach similar to the S1 vertebral body. The C-arm was rotated to square off the superior endplate at L4 and rotated approximately to the right to obtain an oblique view. The superolateral right L4 pedicle was identified, and the skin entry point identified. Same steps were followed as for S1. Target was reached when the tip of the stylet was 50% anterior of the posterior wall of the L4 in the lateral view (midway between the superior and inferior endplates) and it crossed the midline of the L4 spinous process in the AP view. The stylet was then removed. The bipolar radiofrequency (RF) probe was removed from the previous vertebral body, the tip cleaned and was inserted into the introducer cannula in its ablation position. The spin wheel was rotated clockwise to retract the PEEK sleeve to expose the proximal electrode on the radiofrequency probe. The BVN was then ablated using [employer]?s targeted RFG algorithm. While the ablation was occurring at L4, the C-arm was moved to visualize the target at the superolateral aspect of the L5 vertebral body. The C-arm was rotated to square off the superior endplate at L5 and rotated left to obtain an oblique view. The superolateral left L5 pedicle was identified for access. The same process was utilized to place the tip of the cannular 50% anterior of the posterior wall of the L5 in the lateral view (midway between the superior and inferior endplates) and it crossed the midline of the L5 spinous process in the AP view. The stylet was then removed. The bipolar radiofrequency (RF) probe was removed from the previous vertebral body, the tip cleaned and was inserted into the introducer cannula in its ablation position. The spin wheel was rotated clockwise to retract the PEEK sleeve to expose the proximal electrode on the radiofrequency probe. The BVN was then ablated using [employer]?s targeted RFG algorithm. With all ablations completed, the instruments were removed from the vertebral bodies. The surgical wounds were closed with 2-0 silk sutures and a sterile dressing was applied. The patient was returned to the supine position and the anesthesia reversed. The patient tolerated the procedure well and was brought to the recovery room. The patient was provided post-op and follow up instructions. Complications: None Estimate Blood Loss: 50 mL
== END 2024-09-19 16:34 | disposition home or self-care (01) ==
PROVIDERS: Registered Nurse Emergency; PCP Internal Medicine; Visit Provider Internal Medicine
PROC: (CPT 64628; principal; 2024-09-19 13:00)
DX: M54.51 Vertebrogenic low back pain (principal); R26.2 Difficulty in walking, not elsewhere classified; R20.0 Anesthesia of skin; I10 Essential (primary) hypertension; E78.00 Pure hypercholesterolemia, unspecified; J45.909 Unspecified asthma, uncomplicated; J98.11 Atelectasis; Z79.51 Long term (current) use of inhaled steroids; Z79.82 Long term (current) use of aspirin; Z79.899 Other long term (current) drug therapy; Z88.6 Allergy status to analgesic agent; Z88.8 Allergy status to other drugs, medicaments and biological substances
CPT/HCPCS: 64628; 64629; 87640; 87641; C1889; J0131; J0690; J1100; J2003; J2250; J2405; J2704; J3010

== ENCOUNTER → 2024-09-19 10:45 | Outpatient (BNV) | payer OTHER, SELFPAY | PROVIDERS: PCP Internal Medicine; Visit Provider Internal Medicine | DX: M54.51 Vertebrogenic low back pain (principal) | CPT/HCPCS: 64628; 64629 ==

== ENCOUNTER 2024-09-25 08:26 | Outpatient (REF) | payer OTHER, SELFPAY ==
--- NOTE | ~2024-09-25 | MM_ITS ---
EXAMINATION: MM DIAGNOSTIC DIGITAL BREAST TOMOSYNTHESIS, BILATERAL Limited left breast ultrasound. CLINICAL INFORMATION: Patient's physician felt a palpable left breast lump at 11:00. Patient does not feel anything today. COMPARISON: Mammography: Comparison is made with relevant prior exams. TECHNIQUE: Digital breast mammography with tomosynthesis is performed in both the craniocaudal and mediolateral oblique views along with computer-aided detection (CAD). Limited left breast ultrasound. FINDINGS: The breasts are heterogeneously dense, which may obscure small masses (ACR BI-RADS breast composition Category c). Post excisional biopsy changes in the upper outer quadrant. There are no significant masses, abnormal calcifications, or other abnormalities. Targeted color Doppler left breast ultrasound in the area of the physician felt palpable lump scanning from 90 1:00 demonstrates normal fibronodular breast tissue. There is no sonographic abnormality. Results are provided to the patient at time of visit by the technologist. MM/MM tomosynthesis diagnostic BI IMPRESSION: No mammographic or sonographic abnormality to account for the palpable lump at 11:00. Recommend clinical evaluation and follow-up. ASSESSMENT: BI-RADS BI-RADS 2 - Benign Findings RECOMMENDATION: 1 year F/U This patient's information was entered into a reminder system with a target due date for their next mammogram. Electronically signed by: Soraya Camilo DO 09/25/2024 10:19 AM [place]
== END 2024-09-25 08:27 | disposition home or self-care (01) ==
LOC: HO.MAMMO 08:26
PROVIDERS: PCP Internal Medicine; Visit Provider Internal Medicine
DX: N63.22 Unspecified lump in the left breast, upper inner quadrant (principal)
CPT/HCPCS: 76642; 77062; 77066

== ENCOUNTER → 2024-09-25 08:45 | Outpatient (BNV) | payer OTHER, SELFPAY | PROVIDERS: PCP Internal Medicine; Visit Provider Internal Medicine | DX: N63.25 Unspecified lump in the left breast, overlapping quadrants (principal); R92.333 Mammographic heterogeneous density, bilateral breasts | CPT/HCPCS: 76642; 77062; 77066 ==

== ENCOUNTER 2024-09-28 10:47 | Outpatient (AMB) | payer OTHER, SELFPAY ==
--- NOTE | 2024-09-28 10:54 | A.OFFVIS_ITS ---
Vital Signs 09/28/24 10:55 Height 5 ft 4 in Weight 200 lb BMI 34.3 BP 149/71 H Blood Pressure Location Rt brachial Position Sitting Respiration 16 Pulse 92 Pulse Source Pulse Oximeter Pulse Oximetry (%) 99 Oxygen Delivery Method Room Air Intake Visit Reasons: S/p Intracept 09/19/23 Wallpaper Inspector And Shipper Required: Yes Wallpaper Inspector And Shipper Services: Wallpaper Inspector And Shipper Offered & Declined Wallpaper Inspector And Shipper Name: Prefers to translate Allergies ibuprofen Allergy (Intermediate, Verified 09/28/24 10:57) Hives salbutamol Allergy (Intermediate, Uncoded 09/28/24 10:57) Palpitations Medication List - Last Reconciled 09/28/24 by Indiana Thomas LPN bisacodyl (Dulcolax (bisacodyl)) 20 mg (4 x 5 mg) PO ONCE 1 day estradiol 0.01%(0.1mg/gram) (Estrace) 1 g vaginal 3XW 90 days fluticasone propionate 50 mcg/actuation 2 sprays intranasal DAILY 30 days ipratropium bromide 17 mcg/actuation (Atrovent HFA) 2 puffs inhalation Q6H PRN 30 days ipratropium bromide 2.5 mL inhalation Q6H PRN losartan 100 mg PO DAILY mirabegron ER (Myrbetriq) 25 mg PO DAILY 303 days montelukast (Singulair) 10 mg PO BEDTIME 30 days oxycodone-acetaminophen 5-325 mg 1 tab PO Q8H PRN polyethylene glycol 3350 (Miralax) 238 grams PO ONCE rosuvastatin 40 mg PO DAILY HPI HPI S/p Intracept 09/19/23: Details: doing well post intracept >70% improvement soreness improving ROM improved On exam today: Appears afebrile. Alert and oriented. Mood and affect appropriate. Follows and participates in conversation appropriately. Respiratory effort is unlabored. Able to transition from sit to stand unassisted. Ambulates with bilaterally normal heel strike and toe off. Able to stand and walk on toes and heels. Incisions well healed. [facility] Medical History Back pain Allergic Class 2 severe obesity with body mass index (BMI) of 35 to 39.9 with serious comorbidity Chronic allergic rhinitis Atelectasis Low back pain Hypercholesterolemia Essential hypertension Asthma History of benign breast biopsy Surgical History History of lumpectomy of left breast H/O: hysterectomy History of back surgery History of cystostomy Family History Maternal Aunt History of breast cancer Ovarian cancer Social History Housing: House Alcohol intake: never Patient Tobacco Use Status: Never used Tobacco e-Cigarette/Vaping Use: Never Used Second Hand Smoke Exposure: No service: No Current occupational status: unemployed Cognitive needs: No Hearing needs: No Vision needs: No Physical Exam Vital Signs: Last Vital Signs Pulse 92 09/28/24 10:55 Resp 16 09/28/24 10:55 BP 149/71 H 09/28/24 10:55 Pulse Ox 99 09/28/24 10:55 Oxygen Delivery Method Room Air 09/28/24 10:55 BMI result Body Mass Index 34.3 Assessment & Plan Assessment & Plan (1) Cervical spondylosis: Code(s): M47.812 - Spondylosis without myelopathy or radiculopathy, cervical region Category: Medical (2) Cervical radicular pain: Code(s): M54.12 - Radiculopathy, cervical region Category: Medical Plan recommend pt for neck pain continue HEP for LBP follow up in 2-3 months after PT Orders: Orders PT Evaluation and Treatment 09/28/24 M47.812 - Spondylosis without myelopathy or radiculopathy, cervical region, M54.12 - Radiculopathy, cervical region Coding Level of Care Code Est Pt Level 3 (82557) Diagnoses Cervical spondylosis M47.812 Cervical radicular pain M54.12
[2024-09-28 10:55] VITALS: BP 149/71; PULSE 92; RESP 16; O2SAT 99; BMI 34.3
== END 2024-09-28 11:22 | disposition home or self-care (01) ==
PROVIDERS: PCP Internal Medicine; Visit Provider Internal Medicine
DX: M47.812 Spondylosis without myelopathy or radiculopathy, cervical region (principal); M54.12 Radiculopathy, cervical region
CPT/HCPCS: 99024

== ENCOUNTER 2024-10-25 09:59 | Outpatient (AMB) | payer OTHER, SELFPAY ==
--- NOTE | 2024-10-25 10:03 | MHC.OFFVIS ---
Intake Visit Reasons: Breast US follow up/45 mins Computer Operator Required: Yes Computer Operator Language: Facilities Supervisor Services: Computer Operator Present (in person) Computer Operator Name: Janna Goins Information Interpreted: non-clinical & clinical Pharmacy Affairs Assistant: Pharmacy Affairs Assistant Present (Janna Goins) Accompanied by: Self / Same As Patient Allergies ibuprofen Allergy (Intermediate, Verified 10/25/24 10:04) Hives salbutamol Allergy (Intermediate, Uncoded 09/28/24 10:57) Palpitations HPI Comments Details: Patient is here today for a follow up breast imaging due to history breast mass noted on the left side 11:00 o'clock during her last visit. Previous breast surgery left breast, left side for benign mass. [facility] Medical History Back pain Allergic Class 2 severe obesity with body mass index (BMI) of 35 to 39.9 with serious comorbidity Chronic allergic rhinitis Atelectasis Low back pain Hypercholesterolemia Essential hypertension Asthma History of benign breast biopsy Surgical History History of lumpectomy of left breast H/O: hysterectomy History of back surgery History of cystostomy Family History Maternal Aunt History of breast cancer Ovarian cancer Social History Housing: House Alcohol intake: never Patient Tobacco Use Status: Never used Tobacco e-Cigarette/Vaping Use: Never Used Second Hand Smoke Exposure: No service: No Current occupational status: unemployed Cognitive needs: No Hearing needs: No Vision needs: No Review of Systems Const All systems reviewed & are unremarkable except as noted in HPI and below Reports no additional complaints Skin/Breast Reports system reviewed and no additional complaints, except as documented and Reports as per HPI Physical Exam Const General: cooperative, healthy appearing and no acute distress Chest Other: Left breast mass at 11:00 o'clock round, smooth, mobile and tender, previous scar noted on left side. Breast/axilla inspection: normal inspection of the breasts and normal inspection of the axillae Breast/axilla palpation: abnormal palpation of the breast (11:00 o'clock) left Skin General skin exam: no rashes or lesions noted Results Reviewed Results Reviewed: Ultrasound Report Signed Patient: Ekaterina Morales MR#: [id number] : 1965 Acct:[id number] Age/Sex: 58 / F ADM Date: 09/25/24 Loc: HO.MAMMO Attending Dr: Tim Joseph MD Ordering Physician: Renetta Gannon CNM Date of Service: 09/25/24 Procedure(s): US breast LT limited mamm only Accession Number(s): [id number] cc: Renetta Gannon CNM; Tim Joseph MD~ EXAMINATION: MM DIAGNOSTIC DIGITAL BREAST TOMOSYNTHESIS, BILATERAL Limited left breast ultrasound. CLINICAL INFORMATION: Patient's physician felt a palpable left breast lump at 11:00. Patient does not feel anything today. COMPARISON: Mammography: Comparison is made with relevant prior exams. TECHNIQUE: Digital breast mammography with tomosynthesis is performed in both the craniocaudal and mediolateral oblique views along with computer-aided detection (CAD). Limited left breast ultrasound. FINDINGS: The breasts are heterogeneously dense, which may obscure small masses (ACR BI-RADS breast composition Category c). Post excisional biopsy changes in the upper outer quadrant. There are no significant masses, abnormal calcifications, or other abnormalities. Targeted color Doppler left breast ultrasound in the area of the physician felt palpable lump scanning from 90 1:00 demonstrates normal fibronodular breast tissue. There is no sonographic abnormality. Results are provided to the patient at time of visit by the technologist. US/US breast LT limited mamm only IMPRESSION: No mammographic or sonographic abnormality to account for the palpable lump at 11:00. Recommend clinical evaluation and follow-up. ASSESSMENT: BI-RADS BI-RADS 2 - Benign Findings RECOMMENDATION: 1 year F/U This patient's information was entered into a reminder system with a target due date for their next mammogram. Electronically signed by: Soraya Camilo DO 09/25/2024 10:19 AM EST Dictated By: Soraya Camilo DO Signed By: <Electronically signed by Soraya Camilo DO in OV> 09/25/24 1019 DD/ 0915 TD/TT: 09/25/24 0942 Production Trainer: Assessment & Plan Assessment & Plan (1) Breast mass: Comment: Left breast 11:00 o'clock Code(s): N63.0 - Unspecified lump in unspecified breast Category: Medical Qualifiers: Laterality: left Breast mass location: upper inner quadrant Qualified Code(s): N63.22 - Unspecified lump in the left breast, upper inner quadrant Plan Discussed ultrasound findings: Targeted color Doppler left breast ultrasound in the area of the physician felt palpable lump scanning from 90 1:00 demonstrates normal fibronodular breast tissue. There is no sonographic abnormality. Due to discomfort and findings, referral to be placed to breast surgeons for evaluation. The patient expressed understanding and agreement with the plan of care. All of her questions and concerns were addressed to the best of my ability. This note is constructed using voice recognition software. While every effort has been made to ensure accuracy, concrete hopper operator errors may have been included. Orders: Referrals Breast Surgery Referral N63.22 - Unspecified lump in the left breast, upper inner quadrant Coding Level of Care Code Est Pt Level 3 (26353) Diagnoses Mass of upper inner quadrant of left breast N63.22 Laterality: left Breast mass location: upper inner quadrant
== END 2024-10-25 10:23 | disposition home or self-care (01) ==
LOC: HO.HWS 09:59
PROVIDERS: PCP Internal Medicine; Visit Provider Advanced Practice Midwife
DX: N63.22 Unspecified lump in the left breast, upper inner quadrant (principal)
CPT/HCPCS: 99213

== ENCOUNTER 2024-11-19 16:07 | Outpatient (REF) | payer OTHER, SELFPAY ==
--- NOTE | ~2024-11-19 | US_ITS ---
CLINICAL HISTORY: R32 - Unspecified urinary incontinence US Renal Comparison: None Findings: Right kidney normal size and echotexture, 9.3 cm length. Right inferior pole kidney not well seen. Left kidney normal size and echotexture, 9.9 cm length. Left superior pole kidney not well seen. No collecting system dilatation of either kidney. Normal color Doppler. Urinary bladder is unremarkable. Prevoid volume 373 mL. Postvoid volume 42 mL. Bilateral ureteral jets are visualized. IMPRESSION: 1. Normal kidneys. This document has been electronically signed by: Amy Darling MD on 11/20/2024 14:41:23
== END 2024-11-19 16:08 | disposition home or self-care (01) ==
LOC: HO.US 16:07
PROVIDERS: PCP Internal Medicine; Visit Provider Nurse Practitioner Family
DX: R32 Unspecified urinary incontinence (principal)
CPT/HCPCS: 76770

== ENCOUNTER → 2024-11-19 16:09 | Outpatient (BNV) | payer OTHER, SELFPAY | PROVIDERS: PCP Internal Medicine; Visit Provider Radiology Diagnostic Radiology | DX: R32 Unspecified urinary incontinence (principal) | CPT/HCPCS: 76770 ==

== ENCOUNTER 2024-11-22 07:35 | Outpatient (AMB) | payer OTHER, SELFPAY ==
--- NOTE | 2024-11-22 07:35 | A.OFFVIS_ITS ---
Intake Visit Reasons: 3M us Intake Note: Patient presents today for tele visit follow up on ultrasound results Imaging Completed: 11/19/24 Urology Medications: estrace cream, myrbetriq Blood Thinner: none Representative Government Relations Required: Yes Representative Government Relations Name: Blake [phone] Allergies ibuprofen Allergy (Intermediate, Verified 11/22/24 07:54) Hives salbutamol Allergy (Intermediate, Uncoded 11/22/24 07:54) Palpitations Medication List - Last Reconciled 11/22/24 by TOM LopezP- bisacodyl (Dulcolax (bisacodyl)) 20 mg (4 x 5 mg) PO ONCE 1 day estradiol 0.01%(0.1mg/gram) (Estrace) 1 g vaginal 3XW 90 days fluticasone propionate 50 mcg/actuation 2 sprays intranasal DAILY 30 days ipratropium bromide 17 mcg/actuation (Atrovent HFA) 2 puffs inhalation Q6H PRN 30 days ipratropium bromide 2.5 mL inhalation Q6H PRN losartan 100 mg PO DAILY mirabegron ER (Myrbetriq) 25 mg PO DAILY 303 days montelukast (Singulair) 10 mg PO BEDTIME 30 days oxycodone-acetaminophen 5-325 mg 1 tab PO Q8H PRN polyethylene glycol 3350 (Miralax) 238 grams PO ONCE rosuvastatin 40 mg PO DAILY HPI Comments Details: Ekaterina is a very pleasant Portuguese-speaking 58-year-old female patient of Dr. Joseph who was accompanied by her during today's telehealth visit. She has a past medical history of back pain, obesity, chronic allergic rhinitis, hypercholesteremia, hypertension, asthma, and benign breast biopsy. She is being follow-up on today for her ongoing lower urinary tract symptoms. Of note, patient was seen approximately 3 months ago at which time a retroperitoneal ultrasound was ordered for further assessment evaluation and the patient was started on 25 mg of Myrbetriq daily. Imaging 3/25 notes bilateral kidneys are normal in size and echotexture. No collecting system dilatation of either kidney. Normal kidneys. Urinary bladder is unremarkable. Pre void bladder volume is approximately 375 mL. Postvoid bladder volume is approximately 40 mL. In discussion with the patient today she reports improvement in episodes of urinary urgency and frequency she had been experiencing and feels Myrbetriq has been helpful with lessening these symptoms however she does continue to have symptoms however they have lessened. She does have a previous history of 1 delivery in the past. She otherwise denies changes to urinary stream, flank pain, fever, and or chills. We discussed further treatment options of mixed urinary incontinence as well as risks and benefits of these interventions. She otherwise offers no other issues or concerns at this time. [facility] Medical History Back pain Allergic Class 2 severe obesity with body mass index (BMI) of 35 to 39.9 with serious comorbidity Chronic allergic rhinitis Atelectasis Low back pain Hypercholesterolemia Essential hypertension Asthma History of benign breast biopsy Surgical History History of lumpectomy of left breast H/O: hysterectomy History of back surgery History of cystostomy Family History Maternal Aunt History of breast cancer Ovarian cancer Social History Housing: House Alcohol intake: never Patient Tobacco Use Status: Never used Tobacco e-Cigarette/Vaping Use: Never Used Second Hand Smoke Exposure: No service: No Current occupational status: unemployed Cognitive needs: No Hearing needs: No Vision needs: No Review of Systems Const All systems reviewed & are unremarkable except as noted in HPI and below Physical Exam Const General: cooperative Orientation/consciousness: patient oriented x3 Resp Effort & Inspection: able to speak in complete sentences Neuro General: patient oriented x3 Psych Speech and movement: Clear speech present Attitude: cooperative Thought content: Normal thought content present Insight: Fair insight present (Psych) Judgement: Fair judgement present (Psych) Telehealth Telehealth Telehealth Platform: [facility] Location of provider rendering services: practice address Location of patient: address on file Patient Identification confirmed using: Name, : Yes Telehealth method: voice only Patient verbally consented to treatment: Yes Patient verbally consented to billing insurance company: Yes Patient informed of any privacy concerns related to visit: Yes Minutes spent on Phone/Video with Pt.: 15 Results Reviewed Results Reviewed: Date of Service: 11/19/24 Procedure(s): US retroperitoneal comp Findings: Right kidney normal size and echotexture, 9.3 cm length. Right inferior pole kidney not well seen. Left kidney normal size and echotexture, 9.9 cm length. Left superior pole kidney not well seen. No collecting system dilatation of either kidney. Normal color Doppler. Urinary bladder is unremarkable. Prevoid volume 373 mL. Postvoid volume 42 mL. Bilateral ureteral jets are visualized. IMPRESSION: 1. Normal kidneys. Assessment & Plan Assessment & Plan (1) Urinary incontinence: Code(s): R32 - Unspecified urinary incontinence Category: Medical Qualifiers: Urinary Incontinence type: unspecified incontinence Qualified Code(s): R32 - Unspecified urinary incontinence Plan Recent retroperitoneal ultrasound results reviewed with the patient today; as noted above. Continue Myrbetriq; will increase to 50 mg. Continue Estrace cream. Patient currently denies any bothersome urinary issues or concerns. We discussed pelvic floor exercises. Follow-up in 3 months with [facility]; or sooner with any issues, concerns, and or questions. Medications: Changed From mirabegron ER (Myrbetriq) 25 mg PO DAILY 303 days 303 tabs 1RF N30.10 - Interstitial cystitis (chronic) without hematuria, N32.81 - Overactive bladder, R35.1 - Nocturia, R39.15 - Urgency of urination To mirabegron ER (Myrbetriq) 50 mg (2 x 25 mg) PO DAILY 90 days 180 tabs 0RF N30.10 - Interstitial cystitis (chronic) without hematuria, N32.81 - Overactive bladder, R35.1 - Nocturia, R39.15 - Urgency of urination Patient Instructions: The patient had an opportunity to ask questions regarding the treatment plan. All questions were answered. Physical exam, labs, and imaging were discussed and reviewed in detail. As well as risks, benefits, and discussion of treatment choices. No major barriers to understanding were identified. The patient expressed understanding and agreement with the above treatment plan. The patient was made aware they should contact our office by phone for worsening of their current condition, the appearance of new symptoms, or with any questions or concerns. Compliance is encouraged with any medications and follow up testing that is ordered. It is a privilege to be allowed the opportunity to participate in? your urological care.? Again, if you have any questions or concerns If you have any questions or concerns please do not hesitate to contact me. The office is [phone]. This note is constructed using voice recognition software. While every effort has been made to ensure accuracy ordnance technician errors may have been included. Yours sincerely, TYRA Lopez Coding Level of Care Code Tele Est Pt Level 3 (73578) Diagnoses Urinary incontinence, unspecified type R32 Urinary Incontinence type: unspecified incontinence
== END 2024-11-22 08:17 | disposition home or self-care (01) ==
LOC: HO.HUSH 07:35
PROVIDERS: PCP Internal Medicine; Visit Provider Nurse Practitioner Family
DX: R32 Unspecified urinary incontinence (principal)
CPT/HCPCS: 99213

== ENCOUNTER → 2024-11-22 07:35 | Outpatient (BNVA) | payer OTHER, SELFPAY | PROVIDERS: PCP Internal Medicine; Visit Provider Nurse Practitioner Family ==

== ENCOUNTER 2024-11-23 08:27 | Outpatient (REF) | payer OTHER, SELFPAY | END 2024-11-23 08:28 | disposition home or self-care (01) | LOC: HO.MAMMO 08:27 | PROVIDERS: PCP Internal Medicine; Visit Provider Internal Medicine | DX: Z13.89 Encounter for screening for other disorder (principal) ==

== ENCOUNTER 2024-12-03 10:18 | Outpatient (AMB) | payer OTHER, SELFPAY ==
--- NOTE | 2024-12-03 10:20 | MHC.OFFVIS ---
Vital Signs 12/03/24 10:31 Height 5 ft 4 in Weight 202 lb BMI 34.7 BP 157/73 H Blood Pressure Location Lt brachial Position Sitting Pulse 80 Intake Visit Reasons: lump in the left breast, upper inner quadrant Intake Note: Patient is seen in office for evaluation of a lump of the left breast upper inner quadrant. Pt c/o: had a prior left breast lump removed 8 yrs ago in [place] (benign), currently feels a lump on the same breast for few months, admits to pressure, denies discharge, redness, or other concerns, no prior breast surgery or complications mm/us:09/25/24 ref. Renetta Gannon Stonecutter Assistant Required: Yes Stonecutter Assistant Services: Stonecutter Assistant Offered & Declined Superintendent Power: Superintendent Power Present Accompanied by: Spouse Allergies ibuprofen Allergy (Intermediate, Verified 12/03/24 10:32) Hives salbutamol Allergy (Intermediate, Uncoded 12/03/24 10:32) Palpitations Medication List - Last Reconciled 12/03/24 by Cesar Davis MD bisacodyl (Dulcolax (bisacodyl)) 20 mg (4 x 5 mg) PO ONCE 1 day estradiol 0.01%(0.1mg/gram) (Estrace) 1 g vaginal 3XW 90 days fluticasone propionate 50 mcg/actuation 2 sprays intranasal DAILY 30 days ipratropium bromide 17 mcg/actuation (Atrovent HFA) 2 puffs inhalation Q6H PRN 30 days ipratropium bromide 2.5 mL inhalation Q6H PRN losartan 100 mg PO DAILY mirabegron ER (Myrbetriq) 50 mg (2 x 25 mg) PO DAILY 90 days montelukast (Singulair) 10 mg PO BEDTIME 30 days oxycodone-acetaminophen 5-325 mg 1 tab PO Q8H PRN polyethylene glycol 3350 (Miralax) 238 grams PO ONCE rosuvastatin 40 mg PO DAILY HPI HPI lump in the left breast, upper inner quadrant: Details: 58 year female referred for a question of a left breast mass. She apparently had felt a question of a lump on her left breast sometime late last year. She was worried because she had previous biopsy in the area as well in the past. This was benign. late last year. She was sent for a mammogram and ultrasound last September, for this and the imaging studies did not reveal any mass on the left breast. She is uncertain currently if she still feels the lump. She was referred to me therefore because of this Her menarche was at age of 14. Her 1st was the age of 31. She says she only had 1 . She describes a maternal aunt who had breast cancer at age of 60. [facility] Medical History Back pain Allergic Class 2 severe obesity with body mass index (BMI) of 35 to 39.9 with serious comorbidity Chronic allergic rhinitis Atelectasis Low back pain Hypercholesterolemia Essential hypertension Asthma History of benign breast biopsy Surgical History History of lumpectomy of left breast H/O: hysterectomy History of back surgery History of cystostomy Family History Maternal Aunt History of breast cancer Ovarian cancer Social History Housing: House Alcohol intake: never Patient Tobacco Use Status: Never used Tobacco e-Cigarette/Vaping Use: Never Used Second Hand Smoke Exposure: No service: No Current occupational status: unemployed Cognitive needs: No Hearing needs: No Vision needs: No Female Reproductive History Menstrual Age of Menarche: 14 Age of menopause: 39 Total pregnancies: 1 Number of Living Children: 1 Review of Systems Const Denies chills and Denies fever(s) Card Denies chest pain, Denies dyspnea and Denies dyspnea on exertion Resp Denies cough, Denies dyspnea and Denies dyspnea on exertion GI Denies hematochezia and Denies change in bowel habits Denies hematuria Musc Denies back pain and Denies limited range of motion Neuro Denies focal weakness and Denies convulsions Psych Denies depression and Denies mood swings Physical Exam Const General: comfortable and no acute distress Orientation/consciousness: patient oriented x3 Neck Neck: Yes no lymphadenopathy Chest Other: No palpable breast masses, no nipple or skin changes, no axillary lymphadenopathy Resp Auscultation: clear to auscultation bilaterally Cardio Rhythm: regular rhythm GI Palpation (GI): Soft to palpation, nontender and no guarding Neuro General: patient oriented x3 Assessment & Plan Assessment & Plan (1) Breast mass: Comment: Left breast 11:00 o'clock Code(s): N63.0 - Unspecified lump in unspecified breast Category: Medical Qualifiers: Laterality: left Breast mass location: upper inner quadrant Qualified Code(s): N63.22 - Unspecified lump in the left breast, upper inner quadrant Plan: Current exam actually does not reveal any palpable mass no axillary lymphadenopathy. There were no nipple or skin changes I have reviewed her ultrasound and mammogram as well from September,. Again this does not suggest any mass on the left breast I assured her about my findings. I did tell her that she should come back to the office to follow-up if she continues to feel a lump in the area. Otherwise, she should continue with screening mammograms every year. She can follow up with me on a p.r.n. basis. Her was with her during the visit. Coding Level of Care Code New Pt Level 3 (53893) Diagnoses Mass of upper inner quadrant of left breast N63.22 Laterality: left Breast mass location: upper inner quadrant
[2024-12-03 10:31] VITALS: BP 157/73; PULSE 80; BMI 34.7
== END 2024-12-03 10:39 | disposition home or self-care (01) ==
LOC: HO.HGS 10:19
PROVIDERS: PCP Internal Medicine; Visit Provider Surgery
DX: N63.22 Unspecified lump in the left breast, upper inner quadrant (principal)
CPT/HCPCS: 99203

== ENCOUNTER 2024-12-24 09:11 | Outpatient (AMB) | payer OTHER, SELFPAY ==
[2024-12-24 09:13] VITALS: BP 130/72; PULSE 83; O2SAT 100; BMI 33.9
--- NOTE | 2024-12-24 09:13 | MHC.OFFVIS ---
Vital Signs 12/24/24 09:13 Height 5 ft 4 in Weight 197 lb 5.019 oz BMI 33.9 BP 130/72 Blood Pressure Location Lt brachial Position Sitting Pulse 83 Pulse Source Pulse Oximeter Pulse Oximetry (%) 100 Oxygen Delivery Method Room Air Intake Visit Reasons: COPD Allergies ibuprofen Allergy (Intermediate, Verified 12/24/24 09:16) Hives salbutamol Allergy (Intermediate, Uncoded 12/24/24 09:16) Palpitations HPI Comments Details: The patient is a 59 year woman with lifelong asthma. The patient states that she has been doing fairly well. Although she has had intermittent shortness of breath and chest tightness. Her significant other complaints at time she does wake up with significant chest congestion cough with mucus production. Typically that happens more at nighttime. Sometimes she wakes up short of breath from a sound sleep with significant chest congestion and feels like she is choking with her secretions. She is relief with the fact that she does wake up and is able to clear secretions. She does not tolerate albuterol because it caused palpitation tremulousness. She typically responds better to ipratropium via the nebulizer or HFA. Will make sure that provide the medication for her. The patient also does have underlying allergy symptoms. Although she has never had proper allergy testing. She does complaint of postnasal drip chronic rhinitis. She denies any eczema. The patient does not have any significant wheezing on exam today. Although she is very diminished. She does state that back in the [facility] [place] she did have a chest x-ray and she was told that she has atelectasis. Therefore will go ahead and repeat the x-ray at this time in addition to blood work and allergy testing. In regards of maintenance therapy will hold off on any inhaled steroids but I do believe the singular will be a good option for her at this time. Will follow-up after her PFTs and blood work in about 2-3 months. 03/12/2024 the patient is here for a pulmonary follow-up visit. Overall she is doing better her cough is better. She has been using the Singulair medication also the fluticasone nasal spray with good effect. The cough is significantly improved. She also had a chest x-ray demonstrating some evidence of peribronchial cuffing suggesting some degree of bronchitis. Her blood work did demonstrate significant elevations in her IgE consistent with allergies. Although the actual allergy panel was not done. Will go ahead and request again she is going to have it done today. I think be important to know her allergens in order for her to avoid those allergens as much as possible. In the meantime she has not had to use any maintenance respiratory inhalers which is reassuring. 12/24/2024 the patient is here for a pulmonary follow-up visit. Overall she is feeling better. Her respiratory symptoms are controlled on current regimen. She does have significant allergies. We did review her allergy testing. Has significant allergies to pollen right now from the trees and also due dust mites. We did talk about her rides a making sure she vacuums with HEPA filter. The patient has not had to use her rescue inhaler. Typically less than 2 times a week. In addition to that her back pain still there although better. She did have surgery for her back since we last spoke. So will continue with current respiratory therapy. Will plan to follow-up in a year's time. If she has any issues prior to that she would call for an earlier assessment. [facility] Medical History Back pain Allergic Class 2 severe obesity with body mass index (BMI) of 35 to 39.9 with serious comorbidity Chronic allergic rhinitis Atelectasis Low back pain Hypercholesterolemia Essential hypertension Asthma History of benign breast biopsy Surgical History History of lumpectomy of left breast H/O: hysterectomy History of back surgery History of cystostomy Family History Maternal Aunt History of breast cancer Ovarian cancer Social History Housing: House Alcohol intake: never Patient Tobacco Use Status: Never used Tobacco e-Cigarette/Vaping Use: Never Used Second Hand Smoke Exposure: No service: No Current occupational status: unemployed Cognitive needs: No Hearing needs: No Vision needs: No Female Reproductive History Menstrual Age of Menarche: 14 Review of Systems Const Denies fever(s) Eyes Reports no additional complaints ENT Reports nasal congestion and Reports nasal discharge Card Denies chest pain Resp Reports cough and Denies wheezing GI Reports heartburn Musc Reports back pain, Reports myalgias and Reports limited range of motion Skin/Breast Denies rash Neuro Reports no additional complaints Gama/Lymph Denies lymphadenopathy Aller/Immun Denies wheezing Physical Exam Vital Signs: Last Vital Signs Pulse 83 12/24/24 09:13 BP 130/72 12/24/24 09:13 Pulse Ox 100 12/24/24 09:13 Oxygen Delivery Method Room Air 12/24/24 09:13 BMI result Body Mass Index 33.9 Const General: comfortable HEENT Head: Yes normocephalic Neck Neck: Yes supple Chest Chest palpation & inspection: normal inspection of the chest Resp Effort & Inspection: normal respiratory effort Auscultation: clear to auscultation bilaterally, no rhonchi and no wheezes Cardio Heart sounds: S1 normal heart sound present and S2 normal heart sound present GI Palpation (GI): Soft to palpation Back/Spine/Pelvis Back: back tenderness Thoracic/Lumbar Spine: paraspinal muscle tenderness Skin General skin exam: no rashes or lesions noted Extrem General: Yes no clubbing, cyanosis or edema Assessment & Plan Assessment & Plan (1) Asthma: Code(s): J45.909 - Unspecified asthma, uncomplicated Category: Medical Qualifiers: Asthma complication type: uncomplicated Asthma persistence: persistent Asthma severity: moderate Qualified Code(s): J45.40 - Moderate persistent asthma, uncomplicated (2) Atelectasis: Code(s): J98.11 - Atelectasis Category: Medical (3) Chronic allergic rhinitis: Code(s): J30.9 - Allergic rhinitis, unspecified Category: Medical (4) Allergic: Code(s): T78.40XA - Allergy, unspecified, initial encounter Category: Medical Qualifiers: Encounter type: subsequent encounter Qualified Code(s): T78.40XD - Allergy, unspecified, subsequent encounter (5) Back pain: Code(s): M54.9 - Dorsalgia, unspecified Category: Medical Qualifiers: Back pain laterality: unspecified Back pain location: back pain in unspecified location Chronicity: chronic Qualified Code(s): M54.9 - Dorsalgia, unspecified; G89.29 - Other chronic pain Plan continue Singulair MARI as needed consider ICS Fluticasone nasal spray nasal rinsing F/U 12 months Medications: Refilled montelukast (Singulair) 10 mg PO BEDTIME 30 tabs 11RF 30 days J45.909 - Unspecified asthma, uncomplicated fluticasone propionate 50 mcg/actuation 2 sprays intranasal DAILY 15.8 mL 11RF 30 days J31.0 - Chronic rhinitis ipratropium bromide 17 mcg/actuation (Atrovent HFA) 2 puffs inhalation Q6H PRN 12.9 grams 11RF shortness of breath or wheezing 30 days ipratropium bromide 2.5 mL inhalation Q6H PRN 150 mL 11RF shortness of breath or wheezing Coding Level of Care Code Est Pt Level 4 (59806) Diagnoses Moderate persistent asthma without complication J45.40 Asthma complication type: uncomplicated Asthma persistence: persistent Asthma severity: moderate Atelectasis J98.11 Chronic allergic rhinitis J30.9 Allergic disorder, subsequent encounter T78.40XD Encounter type: subsequent encounter Chronic back pain, unspecified back location, unspecified back pain laterality M54.9; G89.29 Back pain laterality: unspecified Back pain location: back pain in unspecified location Chronicity: chronic Time Spent (min) 16
== END 2024-12-24 10:02 | disposition home or self-care (01) ==
LOC: HO.HPS 09:12
PROVIDERS: PCP Internal Medicine; Visit Provider Hospitalist
DX: J45.40 Moderate persistent asthma, uncomplicated (principal); J98.11 Atelectasis; J30.9 Allergic rhinitis, unspecified; T78.40XD Allergy, unspecified, subsequent encounter; M54.9 Dorsalgia, unspecified; G89.29 Other chronic pain
CPT/HCPCS: 99214

== ENCOUNTER → 2024-12-24 09:11 | Outpatient (BNVA) | payer OTHER, SELFPAY | PROVIDERS: PCP Internal Medicine; Visit Provider Hospitalist | DX: J30.9 Allergic rhinitis, unspecified (principal); J45.40 Moderate persistent asthma, uncomplicated; T78.40XA Allergy, unspecified, initial encounter ==

== ENCOUNTER 2025-02-14 07:51 | Day surgery (SDC) | payer OTHER, SELFPAY ==
[2025-02-12 10:57] VITALS: BMI 33.8
--- NOTE | 2025-02-13 10:10 | P.CONAN_ITS ---
Documented by User: Erna Liu NP 02/13/25 10:10 HPI - Anesthesia Eval Consult details Narrative: 59yo F for Colonoscopy PMFSH Active Problems Active Problems: All Active Problems Immunization due (Acute) Breast mass (Acute) Urinary incontinence (Acute) Cervical radicular pain (Acute) Cervical spondylosis (Acute) Post laminectomy syndrome (Acute) Lumbar radiculopathy (Acute) Back pain (Acute) Allergic (Acute) Class 2 severe obesity with body mass index (BMI) of 35 to 39.9 with serious comorbidity (Acute) Chronic allergic rhinitis (Acute) Atelectasis (Acute) Low back pain (Acute) Hypercholesterolemia (Acute) Essential hypertension (Acute) Asthma (Acute) Past Medical History Medical History Back pain Allergic Class 2 severe obesity with body mass index (BMI) of 35 to 39.9 with serious comorbidity Chronic allergic rhinitis Atelectasis Low back pain Hypercholesterolemia Essential hypertension Asthma History of benign breast biopsy Family History Family History Maternal Aunt History of breast cancer Ovarian cancer Family history of problems with anesthesia: No Surgical History Surgical History History of surgery History of lumpectomy of left breast H/O: hysterectomy History of back surgery History of cystostomy History of Problems with Anesthesia: No Social History Social History Housing: House Alcohol intake: never Patient Tobacco Use Status: Never used Tobacco e-Cigarette/Vaping Use: Never Used Second Hand Smoke Exposure: No Use of substances other than those prescribed or required for medical reasons: No Are you DNR?: No Advance Directives: No Advance Directives Information Provided: Yes Patient : No : No Poor oral hygiene: No service: No Current occupational status: unemployed Cognitive needs: No Hearing needs: No Vision needs: No Meds Allergies Allergy/AdvReac Type Severity Reaction Status Date / Time ibuprofen Allergy Intermediate Hives Verified 12/24/24 09:16 salbutamol AdvReac Intermediate Palpitation Uncoded 02/12/25 10:56 s Exam Height,Weight and Vital Signs: Height 5 ft 4 in Weight 89.358 kg Assessment and Plan Assessment Anesthesia Assessment: Chart Reviewed Final Anesthetic Review Family History of Problems with Anesthesia: No History of Problems with Anesthesia: No Documented by User: Holly Rivera MD 02/14/25 09:11 [facility] Past Medical History Medical History Back pain Allergic Class 2 severe obesity with body mass index (BMI) of 35 to 39.9 with serious comorbidity Chronic allergic rhinitis Atelectasis Low back pain Hypercholesterolemia Essential hypertension Asthma History of benign breast biopsy Family History Family History Maternal Aunt History of breast cancer Ovarian cancer Surgical History Surgical History History of surgery History of lumpectomy of left breast H/O: hysterectomy History of back surgery History of cystostomy Social History Social History Housing: House Alcohol intake: never Patient Tobacco Use Status: Never used Tobacco e-Cigarette/Vaping Use: Never Used Second Hand Smoke Exposure: No Use of substances other than those prescribed or required for medical reasons: No Are you DNR?: No Advance Directives: No Advance Directives Information Provided: Yes Patient : No : No Poor oral hygiene: No service: No Current occupational status: unemployed Cognitive needs: No Hearing needs: No Vision needs: No Meds Allergies Allergy/AdvReac Type Severity Reaction Status Date / Time ibuprofen Allergy Intermediate Hives Verified 12/24/24 09:16 salbutamol AdvReac Intermediate Palpitation Uncoded 02/12/25 10:56 s Exam Airway Mallampati Class: II TM Dist: >3cm Neck ROM: Full Heart: rrr Lungs: cta Assessment and Plan Assessment Anesthesia Assessment: Anesthesia Plan Discussed Final Anesthetic Review NPO: Yes ASA Class: III Final Preanesthetic Review: No Changes in Pt Med Stat, Meds/Allgs Chart Reviewed, Consent Obtained/Reviewed and Anes Risks/Benef Reviewed Patient Risk: Intermediate Procedure Risk: Low Anesthetic Plan Anesthetic Plan: MAC: Disposition: Standard PACU
[2025-02-14 08:42] VITALS: BMI 33.6
[2025-02-14 08:43] VITALS: BP 154/91; PULSE 72; RESP 16; TEMP 37; O2SAT 100
--- NOTE | 2025-02-14 08:56 | P.HPSUR_ITS ---
Pre-Procedural Eval Section A - 24 Hr Update-Section A only Date of Service: 02/14/25 Section B - Complete if H&P > 30 days Chief Complaint: Encounter for screening for malignant neoplasm of Details of Present Illness: Back pain Allergic Class 2 severe obesity with body mass index (BMI) of 35 to 39.9 with serious comorbidity Chronic allergic rhinitis Atelectasis Low back pain Hypercholesterolemia Essential hypertension Asthma History of benign breast biopsy Surgical History History of lumpectomy of left breast H/O: hysterectomy History of back surgery History of cystostomy Present Medications: see Short Stay Collaborative assessment Allergies: Allergies Allergy/AdvReac Type Severity Reaction Status Date / Time ibuprofen Allergy Intermediate Hives Verified 12/24/24 09:16 salbutamol AdvReac Intermediate Palpitation Uncoded 02/12/25 10:56 s Review of Systems Review of Systems Comment: Ten point ROS neg Exam Exam Comment: Gen appear: No acute distress HEENT: no icterus Chest: No overt resp distress Abd: soft, nontender, nondistended Psych: Stable affect, answering questions appropriately Neuro: A/Ox3 noted to move all extremities spontaneously Ext: no peripheral edema Plan Diagnosis/Plan: Unchanged I have reviewed the history and physical and performed a pertinent physical examination on my patient. No changes have occurred unless specified. Time Spent With Patient Time: Total time managing care of this patient today ____ minutes.
[2025-02-14] MEDS: Lactated Ringers 1,000 ML 100 ML IVCONT (09:11)
--- NOTE | 2025-02-14 09:56 | P.OPN-COLO_ITS ---
Colonoscopy Operative Note Operative Note Date of Service: 02/14/25 Narrative: Procedure: Colonoscopy Indication: Screening Endoscopist: Lesley Martin MD Anesthesia Provider: Dr Beach Anesthesia type: MAC Instrument: Olympus [id number]-[id number] Consent: Indication, risks vs benefits, and alternatives were discussed with the patient who gave written informed consent to proceed. An plant engineering manager was utilized to assist with the consent. EKG, pulse, pulse oximetry and blood pressure were monitored throughout the procedure. Please see anesthesia flowsheet. Procedure: The patient was brought to the procedure room and placed in the left lateral decubitus position. IV medications were administered by the anesthesia provider in attendance. A digital rectal exam was performed which was normal. A distal attachment cap was affixed to the tip of the colonoscope which was then inserted through the anus and advanced through the colon to the cecum at 75 cm,and terminal ileum. Appendiceal orifice and ileocecal valve were identified. Mucosa was carefully examined under high definition white light as the instrument was slowly withdrawn in a retrograde panoramic fashion. Retroflexion was performed in rectum. The procedure was not difficult. There were no immediate obvious complications. The quality of the prep was BBPS: 2+3+3 = adequate Withdrawal time 9 minutes. Limitations: No limitations. Findings: Mucosa: Normal to cecum and terminal ileum. Protruding lesions: * Medium internal hemorrhoids [without] stigmata of recent bleeding. Impression: 1. Normal colon and terminal ileum mucosa 2. Internal hemorrhoids Recommendations: - Repeat colonoscopy for asymptomatic colorectal cancer screening recommended in 10 years.
[2025-02-14 09:58] VITALS: BP 110/63; PULSE 69; RESP 16; TEMP 36.3; O2SAT 98
[2025-02-14 10:08] VITALS: BP 117/67; PULSE 70; RESP 16; O2SAT 95
[2025-02-14 10:26] VITALS: BP 128/73; PULSE 67; RESP 16; TEMP 36.6; O2SAT 96
== END 2025-02-14 10:41 | disposition home or self-care (01) ==
PROVIDERS: PCP Internal Medicine; Visit Provider Internal Medicine
PROC: 0DJD8ZZ Inspection of Lower Intestinal Tract, Via Natural or Artificial Opening Endoscopic (ICD-10-PCS; CPT 45378; principal; 2025-02-14 09:50)
DX: Z12.11 Encounter for screening for malignant neoplasm of colon (principal); K64.8 Other hemorrhoids; I10 Essential (primary) hypertension; E78.00 Pure hypercholesterolemia, unspecified; J45.998 Other asthma; J98.11 Atelectasis; M54.50 Low back pain, unspecified; E66.812 Obesity, class 2; Z88.6 Allergy status to analgesic agent; Z88.8 Allergy status to other drugs, medicaments and biological substances; Z98.890 Other specified postprocedural states; Z56.0 Unemployment, unspecified
CPT/HCPCS: 45378; J2003; J2704; J3010

== ENCOUNTER → 2025-02-14 07:51 | Outpatient (BNV) | payer OTHER, SELFPAY | PROVIDERS: PCP Internal Medicine; Visit Provider Internal Medicine | DX: Z12.11 Encounter for screening for malignant neoplasm of colon (principal); K64.8 Other hemorrhoids | CPT/HCPCS: 45378 ==

== ENCOUNTER 2025-04-16 09:44 | Outpatient (AMB) | payer OTHER, SELFPAY ==
--- NOTE | 2025-04-16 09:50 | MHC.OFFVIS ---
Intake Visit Reasons: follow up/PVR Intake Note: Patient is present for PVR F/U Urology Medication:MIRABEGRON Antibiotic Allergy:NONE Blood Thinner:NONE Todays PVR:OML'S Supervisor Mail Carriers Required: No Supervisor Mail Carriers Services: Supervisor Mail Carriers Present Supervisor Mail Carriers Name: Kev [id number] Allergies ibuprofen Allergy (Intermediate, Verified 04/16/25 10:22) Hives salbutamol Adverse Reaction (Intermediate, Uncoded 04/16/25 10:22) Palpitations Medication List - Last Reconciled [facility]16/25 [facility] fluticasone propionate 50 mcg/actuation 2 sprays intranasal DAILY 30 days ipratropium bromide 17 mcg/actuation (Atrovent HFA) 2 puffs inhalation Q6H PRN 30 days ipratropium bromide 2.5 mL inhalation Q6H PRN losartan 100 mg PO DAILY mirabegron ER (Myrbetriq) 50 mg PO DAILY 90 days montelukast (Singulair) 10 mg PO BEDTIME 30 days rosuvastatin 40 mg PO DAILY HPI Comments Details: Ekaterina is a very pleasant Welsh-speaking 58-year-old female patient of Dr. Joseph who was accompanied by her at today's office visit. She has a past medical history of back pain, obesity, chronic allergic rhinitis, hypercholesteremia, hypertension, asthma, and benign breast biopsy. She presents to the office today for follow-up of her ongoing lower urinary tract symptoms. In discussion with the patient today she reports significant improvement in episodes of urinary urgency and frequency she had been experiencing. She currently denies any bothersome urinary issues or concerns. She is requesting refill on her Myrbetriq. Previous workup has included a retroperitoneal ultrasound 12/04 notes bilateral kidneys are normal in size and echotexture. No collecting system dilatation of either kidney. Normal kidneys. Urinary bladder is unremarkable. Pre void bladder volume is approximately 375 mL. Postvoid bladder volume is approximately 40 mL. In office urinalysis results reviewed with the patient today. PVR 0 mLs. She does have a history of one delivery in the past. She otherwise denies changes to urinary stream, flank pain, fever, and or chills. Will continue with surveillance monitoring at this time. She otherwise offers no other issues or concerns at this time. [facility] Medical History Back pain Allergic Class 2 severe obesity with body mass index (BMI) of 35 to 39.9 with serious comorbidity Chronic allergic rhinitis Atelectasis Low back pain Hypercholesterolemia Essential hypertension Asthma History of benign breast biopsy Surgical History (Updated 02/15/25 @ 09:41 by Tim Joseph MD) History of colonoscopy (02/14/25) History of surgery History of lumpectomy of left breast H/O: hysterectomy History of back surgery History of cystostomy Family History Maternal Aunt History of breast cancer Ovarian cancer Social History Housing: House Alcohol intake: never Patient Tobacco Use Status: Never used Tobacco e-Cigarette/Vaping Use: Never Used Second Hand Smoke Exposure: No service: No Current occupational status: unemployed Cognitive needs: No Hearing needs: No Vision needs: No Female Reproductive History Menstrual Age of Menarche: 14 Review of Systems Const All systems reviewed & are unremarkable except as noted in HPI and below Physical Exam Const General: cooperative, healthy appearing, comfortable, no acute distress, well developed, alert and awake Orientation/consciousness: patient oriented x3 Limitations: language barrier HEENT Head: Yes normal to inspection, Yes normocephalic and Yes atraumatic Ears: hearing grossly normal bilaterally Eyes General: appearance normal, both eyes and all related structures Neck Neck: Yes normal visual inspection and Yes trachea midline Chest Chest palpation & inspection: normal inspection of the chest Resp Effort & Inspection: normal respiratory effort and able to speak in complete sentences Cardio Rate: regular rate GI Inspection: Yes normal to inspection General: Yes no CVA tenderness Back/Spine/Pelvis Back: no CVA tenderness Skin General skin exam: no rashes or lesions noted Neuro General: patient oriented x3 Extrem General: Yes normal to inspection Psych Appearance: grossly normal and well kempt Mental Status: mental status grossly normal Speech and movement: Normal speech and movement present and Clear speech present Affect: normal affect Attitude: cooperative Thought process: Normal thought process present Thought content: Normal thought content present Office Procedures Post Void Residual Post Residual Void Post Void Residual (PVR): 0 [id number] Void Residual by ultrasound Assessment & Plan Assessment & Plan (1) Urinary incontinence: Code(s): R32 - Unspecified urinary incontinence Category: Medical Qualifiers: Urinary Incontinence type: unspecified incontinence Qualified Code(s): R32 - Unspecified urinary incontinence (2) Lower urinary tract symptoms: Code(s): R39.9 - Unspecified symptoms and signs involving the genitourinary system Category: Medical Plan In office urinalysis results reviewed with the patient today; as noted above. PVR 0 mL. Will continue Myrbetriq as discussed and prescribed; refill provided. She currently denies any bothersome urinary issues or concerns. She reports be happy with current voiding parameters. Will continue with surveillance monitoring. Follow-up in 6 months with PVR; or sooner with any issues, concerns, and or questions. Orders: Orders AMB Urinalysis Automated Today Z13.9 - Encounter for screening, unspecified Medications: New mirabegron ER (Myrbetriq) 50 mg PO DAILY 90 tabs 3RF 90 days Discontinued mirabegron ER (Myrbetriq) Discontinued Reason: Doctor's Order 50 mg (2 x 25 mg) PO DAILY 180 tabs 0RF 90 days N30.10 - Interstitial cystitis (chronic) without hematuria, N32.81 - Overactive bladder, R35.1 - Nocturia, R39.15 - Urgency of urination Patient Instructions: The patient had an opportunity to ask questions regarding the treatment plan. All questions were answered. Physical exam, labs, and imaging were discussed and reviewed in detail. As well as risks, benefits, and discussion of treatment choices. No major barriers to understanding were identified. The patient expressed understanding and agreement with the above treatment plan. The patient was made aware they should contact our office by phone for worsening of their current condition, the appearance of new symptoms, or with any questions or concerns. Compliance is encouraged with any medications and follow up testing that is ordered. It is a privilege to be allowed the opportunity to participate in? your urological care.? Again, if you have any questions or concerns If you have any questions or concerns please do not hesitate to contact me. The office is [phone]. This note is constructed using voice recognition software. While every effort has been made to ensure accuracy senior hadoop developer errors may have been included. Yours sincerely, TYRA Lopez Coding Level of Care Code Est Pt Level 3 (55543) Complex EM visit Add On G2211 Diagnoses Urinary incontinence, unspecified type R32 Urinary Incontinence type: unspecified incontinence Lower urinary tract symptoms R39.9 CPT Codes Post Residual Void - PVR CPT Code: 01127-Raux Void Residual by ultrasound ([id number])
--- OUTSIDE RECORDS SUMMARY | 2025-04-16 10:09 | XMS_ITS | Clinical Summary ---
Author Organization 175 [facility] Address [address] [place] [address] Phone Care Team Providers Care Poultry Farmer Meat Name Role Phone Tim Joseph MD Primary Care Provider [phone] Allergies Active Allergy Reactions Criticality Noted Date Comments Ibuprofen Hives,Swelling 05/24/2023 Other Reaction(s): UNKNOWN Medications fluticasone propionate (FLONASE) 50 mcg/actuation nasal spray 2 SPRAYS INTRANASALLY DAILY FOR 30 DAYS 5 Active Atrovent HFA 17 mcg/actuation inhaler INHALE 2 PUFF EVERY 6 HOURS NEEDED FOR SHORTNESS OF BREATH OR WHEEZING FOR 30 DAYS 5 Active ipratropium (ATROVENT) 0.02 % nebulizer solution 5 Active losartan (COZAAR) 100 mg tablet Take 1 tablet (100 mg total) by mouth 1 (one) time each day. 5 Active mirabegron (MYRBETRIQ) 25 mg 24 hr tablet Take 2 tablets (50 mg total) by mouth 1 (one) time each day. 5 Active montelukast (SINGULAIR) 10 mg tablet 10 MG ORALLY BEDTIME FOR 30 DAYS 5 Active rosuvastatin (CRESTOR) 40 mg tablet Take 1 tablet (40 mg total) by mouth 1 (one) time each day. Active Active Problems Problem Noted Date Diagnosed Date Degeneration of intervertebr al disc of lumbar region with discogenic back pain and lower extremity pain 03/29/2025 Assessment & Plan (03/29/2025 1:58 PM EDT): I reviewed the imaging findings in detail with Ms. Estrada and her noting in particular, the L4-5 and L5-S1 degenerative disks. It is quite interesting that she responded well to the Intracept procedure for a few months then had return of symptoms. I do not think it can be done again but I believe it confirms that the discs are a pain generator. Using a spine model, I discussed the option of a two-level fusion across the discs with supportive hardware however, in my practice, I generally do this when there is also nerve root compression and much of the recovery is due to decompressing the nerves. She has no central or foraminal stenosis and would not offer the surgery. We discussed other options including continued injection therapy or consideration of a spinal cord stimulator. They are willing to consider these options would like to be referred to someplace new. We will place a referral to [facility] to discuss pain management options. Encounters Date Type Department Care Team Description 03/29/2025 1:00 PM EDT Consult Neurosurgery [place] [address] [place] [address] Frances Gonzalez MD Degeneration of intervertebral disc of lumbar region with discogenic back pain and lower extremity pain (Primary Dx) from Last 3 Months Surgical History Surgery Date Site/Laterality Comments HYSTERECTOMY years ago LUMBAR LAMINECTOMY 15 years ago Medical History Medical History Date Comments Hyperlipidemia Hypertension Social History Tobacco Use Types Packs/Day Years Used Date Smoking Tobacco: Never Assessed Comments Unknown Sex and Gender Information Value Date Recorded Sex Assigned at Not on file Legal Sex Female 8:47 PM EST Gender Identity Not on file Sexual Orientation Not on file Obstetrics History Last Filed Vital Signs Vital Sign Reading Time Taken Comments Blood Pressure - - Pulse - - Temperature - - Respiratory Rate - - Oxygen Saturation - - Inhaled Oxygen Concentration - - Weight 88.5 kg (195 lb) 03/29/2025 1:02 PM EDT Height 162.6 cm (5' 4 ) 03/29/2025 1:02 PM EDT Body Mass Index 33.47 03/29/2025 1:02 PM EDT Plan of Treatment Health Maintenance Due Date Last Done Comments Breast Cancer Screening 1966 DTaP,Tdap,and Td Vaccines (1 - Tdap) 1985 Hepatitis B Vaccines (1 of 3 - 19+ 3-dose series) 1985 Cervical Cancer Screening: P ap Smear 12/18/1987 Pneumococcal Vaccine: 50+ Ye ars (1 of 1 - PCV) 2016 Zoster Vaccines (1 of 2) 2016 Colorectal Cancer Screening: Colonoscopy 10/07/2023 HIV Screening 10/07/2023 Hepatitis C Screening 10/07/2023 Social Influencers of Health Screening 10/07/2023 COVID-19 Vaccine (1 - 2023-2 5 season) 2024 Depression Screening 09/12/2024 Influenza Vaccine (#1) 2025 Cholesterol Screening (Lipid Panel) 05/25/2028 05/25/2023 HIB Vaccines Aged Out No longer eligi ble based on patient's age to complete this topic HPV Vaccines Aged Out No longer eligi ble based on patient's age to complete this topic Hepatitis A Vaccines Aged Out No long er eligible based on patient's age to complete this topic IPV Vaccines Aged Out No longer eligi ble based on patient's age to complete this topic MMR Vaccines Aged Out No longer eligi ble based on patient's age to complete this topic Meningococcal ACWY Vaccine Aged Out N o longer eligible based on patient's age to complete this topic Meningococcal B Vaccine Aged Out No l onger eligible based on patient's age to complete this topic RSV Immunization Patients Un deya 20 months Aged Out No longer eligible b ased on patient's age to complete this topic Varicella Vaccines Aged Out No longer eligible based on patient's age to complete this topic Insurance [facility] [address] [facility] Care Teams Poultry Farmer Meat Relationship Specialty Start Date End Date Tim Joseph MD [facility] AD[facility] [address] [facility] [address] PCP - General Internal Medicine 03/19/25
== END 2025-04-16 10:23 | disposition home or self-care (01) ==
LOC: HO.HUSH 09:45
PROVIDERS: PCP Internal Medicine; Visit Provider Nurse Practitioner Family
DX: R32 Unspecified urinary incontinence (principal); R39.9 Unspecified symptoms and signs involving the genitourinary system; Z13.9 Encounter for screening, unspecified
CPT/HCPCS: 99213

== ENCOUNTER → 2025-04-16 09:44 | Outpatient (BNVA) | payer OTHER, SELFPAY | PROVIDERS: PCP Internal Medicine; Visit Provider Nurse Practitioner Family | DX: R32 Unspecified urinary incontinence (principal) | CPT/HCPCS: 51798; 81003 ==

== ENCOUNTER 2025-04-24 09:40 | Outpatient (AMB) | payer OTHER, SELFPAY ==
--- NOTE | 2025-04-24 09:46 | MHC.OFFVIS ---
Vital Signs 04/24/25 09:47 Height 5 ft 4 in Weight 197 lb BMI 33.8 BP 165/79 H Blood Pressure Location Lt brachial Position Sitting Respiration 16 Pulse 76 Pulse Source Pulse Oximeter Pulse Oximetry (%) 99 Oxygen Delivery Method Room Air Intake Visit Reasons: CHRONIC BACK PAIN Wind Projects Supervisor Required: Yes Wind Projects Supervisor Services: Wind Projects Supervisor Offered & Declined Wind Projects Supervisor Name: Prefers to translate Accompanied by: Spouse Allergies ibuprofen Allergy (Intermediate, Verified 04/24/25 09:48) Hives salbutamol Adverse Reaction (Intermediate, Uncoded 04/24/25 09:48) Palpitations Medication List - Last Reconciled 04/24/25 by Indiana Thomas LPN fluticasone propionate 50 mcg/actuation 2 sprays intranasal DAILY 30 days ipratropium bromide 17 mcg/actuation (Atrovent HFA) 2 puffs inhalation Q6H PRN 30 days ipratropium bromide 2.5 mL inhalation Q6H PRN losartan 100 mg PO DAILY mirabegron ER (Myrbetriq) 50 mg PO DAILY 90 days montelukast (Singulair) 10 mg PO BEDTIME 30 days rosuvastatin 40 mg PO DAILY HPI HPI CHRONIC BACK PAIN: Details: History of Present Illness The patient is a 59-year-old female presenting with exacerbation of back pain and leg pain. She underwent a vertebral nerve inhalation procedure in September, which provided relief for approximately six months. In February, the pain began to return, characterized by back pain radiating down the left leg, accompanied by numbness and weakness in the thighs. Initially, before the surgery, the pain was described as numbness, but post-surgery, it evolved into a sharp, stabbing sensation, particularly upon movement. The pain is now described as stronger and different from the pre-surgery pain, affecting the back, leg, and hip. The patient reports that the pain exacerbates her hypertension, leading to episodes of elevated blood pressure and headaches. She also experiences numbness in the left leg, which is associated with the pain. Pain Description - Onset: Pain returned in February after initial relief from a procedure in September - Quality: Described as sharp, stabbing, and stronger than pre-surgery pain - Location: Back, radiating down the left leg, affecting the hip - Exacerbating factors: Movement increases pain - Associated symptoms: Numbness and weakness in the thighs, elevated blood pressure, and headaches Physical Exam - Appears afebrile. - Alert and oriented. - Mood and affect appropriate. - Follows and participates in conversation appropriately. - Respiratory effort is unlabored. - Able to transition from sit to stand unassisted. - Ambulates with bilaterally normal heel strike and toe off. - Able to stand and walk on toes and heels. [facility] Medical History Back pain Allergic Class 2 severe obesity with body mass index (BMI) of 35 to 39.9 with serious comorbidity Chronic allergic rhinitis Atelectasis Low back pain Hypercholesterolemia Essential hypertension Asthma History of benign breast biopsy Surgical History (Updated 02/15/25 @ 09:41 by Tim Joseph MD) History of colonoscopy (02/14/25) History of surgery History of lumpectomy of left breast H/O: hysterectomy History of back surgery History of cystostomy Family History Maternal Aunt History of breast cancer Ovarian cancer Social History Housing: House Alcohol intake: never Patient Tobacco Use Status: Never used Tobacco e-Cigarette/Vaping Use: Never Used Second Hand Smoke Exposure: No service: No Current occupational status: unemployed Cognitive needs: No Hearing needs: No Vision needs: No Female Reproductive History Menstrual Age of Menarche: 14 Physical Exam Vital Signs: Last Vital Signs Pulse 76 04/24/25 09:47 Resp 16 04/24/25 09:47 BP 165/79 H 04/24/25 09:47 Pulse Ox 99 04/24/25 09:47 Oxygen Delivery Method Room Air 04/24/25 09:47 BMI result Body Mass Index 33.8 Assessment & Plan Assessment & Plan (1) Lumbar radiculopathy: Code(s): M54.16 - Radiculopathy, lumbar region Category: Medical Plan Plan - Schedule a left L4-5 interlaminar epidural steroid injection as a first step to manage current radicular pain. - Consider further diagnostic injections to the facets or SI joint if the initial injection is not effective. - Monitor blood pressure as pain exacerbates hypertension, potentially requiring adjustments in management. Patient was informed and verbally consented to the use of an ambient scribe for clinic note documentation during this visit. Discussion Notes I discussed with the patient the presence of herniated intervertebral discs and the potential for these to cause flare-ups of pain. We talked about the plan to perform a left L4-5 interlaminar epidural steroid injection to manage her pain and the possibility of further diagnostic injections if needed. I explained that pain can exacerbate hypertension, and we will monitor her blood pressure closely. Patient Instructions - Follow up with the clinic for scheduling the epidural steroid injection. - Monitor blood pressure regularly and report any significant changes. - Contact the clinic if pain worsens or if there are any new symptoms. Coding Level of Care Code Est Pt Level 3 (25493) Diagnoses Lumbar radiculopathy M54.16
[2025-04-24 09:47] VITALS: BP 165/79; PULSE 76; RESP 16; O2SAT 99; BMI 33.8
--- OUTSIDE RECORDS SUMMARY | 2025-04-24 10:09 | XMS_ITS | Clinical Summary ---
Author Organization 175 [facility] Address [address] [place] [address] Phone Care Team Providers Care Lawnmower Mechanic Name Role Phone Tim Joseph MD Primary Care Provider [phone]- [phone] Allergies Active Allergy Reactions Criticality Noted Date [...] new. We will place a referral to [facility] to discuss pain management options. Encounters Date Type Department Care Team Description 03/29/2025 1:00 PM EDT Consult Neurosurgery [place] [address] [place] [address] Frances Gonzalez MD Degeneration of [...] patient's age to complete this topic Insurance [facility] [address] [employer] [facility] [address] Care Teams Lawnmower Mechanic Relationship Specialty Start Date End Date Tim Joseph MD [facility] [address] [place] [address] PCP - General Internal Medicine 03/19/25
== END 2025-04-24 10:23 | disposition home or self-care (01) ==
LOC: HO.PMC 09:41
PROVIDERS: PCP Internal Medicine; Visit Provider Internal Medicine
DX: M54.16 Radiculopathy, lumbar region (principal)
CPT/HCPCS: 99213

== ENCOUNTER 2025-05-31 08:54 | Outpatient (RCR) | payer OTHER, SELFPAY ==
--- NOTE | 2025-04-22 10:48 | MHC.PT.EP ---
[facility] [place] [facility] [place] [facility] [place] Office [address] Chinedu Mancini [address] [phone] F: [phone] F: [phone] F: [phone] F: [phone] Physical Therapy Plan of Care Date of Evaluation: 04/22/25 Date of Surgery: Diagnosis: cervical radiculopathy Assessment: 59 y/o female referred to PT with cervical radiculopathy and spondylosis. Reports pain and difficulty with sleeping, reaching, sitting, lifting, carrying. However she reports more pain in low back resulting with difficulty standing, walking, looking down, carrying, and transtiional movements in which she just started to use a RW 1-2 weeks ago. They will look into updated script for LBP as well. Examination shows decreased cervical ROM, decreased strength, pain, and impaired gait pattern. Recommend PT 2x/week for 6 weeks to address impairments, implement HEP and optimize functional mobiltiy Frequency and Duration: The patient will be seen 2x/week for 6 weeks Short Term Goals: 3 weeks I with HEP Residential Goals: 5 weeks I with HEp and self management of sx Pt will improve NDO to 23/50 Pt will be able to reach overhead wtih pain < 3/10 Treatment Plan: Modalities to reduce pain, spasms and effusion. Manual therapy to restore motion and function. Therapeutic exercise to improve strength and flexibility. Neuromuscular re-education for posture and balance. Therapeutic activities to return to functional activities of daily living. Electronically signed by: Lu Figueredo PT Please sign and return to therapist. Thank you for your referral.
--- NOTE | 2025-06-20 08:31 | MHC.PT.DC ---
[facility] [place] Office [place] Office [place] Office [address] Chinedu Mancini [address] [phone] F: [phone] F: [phone] F: [phone] F: [phone] Physical Therapy Discharge Report Diagnosis: cervical radiculopathy Date of Surgery: Date of Evaluation: 04/22/25 Date of Discharge: 06/20/25 Treatments to Date: 10 Cancellations to Date: 0 No Shows to Date: 0 Discharge Status: Achieved Goals Improved Function Independent with [facility] Discharge Summary: She has made excellent progress and showed high levels of motivation throughout course of therapy. NDI improved to 9/50 and all goals met. She is appropriate for d/c to [facility] Electronically signed by: Lu Figueredo PT Please sign and return to therapist. Thank you for your referral.
== END 2025-06-20 08:32 | disposition home or self-care (01) ==
LOC: HO.PT 08:54
PROVIDERS: PCP Internal Medicine; Visit Provider Internal Medicine
DX: M47.812 Spondylosis without myelopathy or radiculopathy, cervical region (principal); M54.12 Radiculopathy, cervical region
CPT/HCPCS: 97110; 97162; 97530

== ENCOUNTER 2025-06-13 11:47 | Outpatient (AMB) | payer OTHER, SELFPAY ==
--- NOTE | 2025-06-13 12:11 | A.OFFPC_ITS ---
Vital Signs 06/13/25 12:12 Height 5 ft 4 in Weight 199 lb 8 oz BMI 34.2 BP 150/90 H Blood Pressure Location Lt brachial Position Sitting Pulse 72 Pulse Source Pulse Oximeter Temp 97.1 F Temp Source Temporal Artery Scan Pulse Oximetry (%) 98 Oxygen Delivery Method Room Air Intake Visit Reasons: Follow up Intake Note: Patient is here to follow up on Lumbar Radiculopathy, HTN. 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) Demand Equipment Repairer: Present Accompanied by: Spouse Allergies ibuprofen Allergy (Intermediate, Verified 06/13/25 12:12) Hives salbutamol Adverse Reaction (Intermediate, Uncoded 06/13/25 12:12) Palpitations Tobacco use date assessed: 06/13/25 Dental Screening Dental Screen Date: 06/13/25 Did you have a dental visit in the last 12 months?: Yes Did you have a dental problem in the last 6 months where you did not have access to dental care?: No Was dental information given to patient?: Patient has dentist [facility] Medical History (Updated 04/16/25 @ 10:23 by NABEEL LopezUN[facility]) Back pain Allergic Class 2 severe obesity with body mass index (BMI) of 35 to 39.9 with serious comorbidity Chronic allergic rhinitis Atelectasis Low back pain Hypercholesterolemia Essential hypertension Asthma History of benign breast biopsy Surgical History History of colonoscopy (02/14/25) History of surgery History of lumpectomy of left breast H/O: hysterectomy History of back surgery History of cystostomy Family History Maternal Aunt History of breast cancer Ovarian cancer Social History Housing: House Alcohol intake: never Patient Tobacco Use Status: Never used Tobacco e-Cigarette/Vaping Use: Never Used Second Hand Smoke Exposure: No service: No Current occupational status: unemployed Cognitive needs: No Hearing needs: No Vision needs: No Female Reproductive History Menstrual Age of Menarche: 14 Questionnaire PHQ-9 Over the last 2 weeks, how often have you been bothered by any of the following problems? 1. Little interest or pleasure in doing things: not at all 2. Feeling down, depressed, or hopeless: not at all 3. Trouble falling or staying asleep, or sleeping too much: not at all 4. Feeling tired or having little energy: not at all 5. Poor appetite or overeating: not at all 6. Feeling bad about yourself - or that you are a failure or have let yourself or your family down: not at all 7. Trouble concentrating on things, such as reading the newspaper or watching television: not at all 8. Moving or speaking so slowly that other people could have noticed. Or the opposite - being so fidgety or restless that you have been moving around a lot more than usual: not at all 9. Thoughts that you would be better off or of hurting yourself in some way: not at all Total score: 0 Depression Screening Interpretation: Negative Depression Screening Done: Yes Source: Developed by Drs. German Velez, Cecily Lew, Bay Cruz and colleagues, with an educational crystal from [employer]. Thrive Questionnaire Date Thrive assessed: 06/10/25 Do you have trouble with day-to-day activities such as bathing, preparing meals, shopping, managing finances, etc.?: No Are you currently unemployed and looking for a job?: No Are you interested in more education?: No Please select the resources that you would like help with: None Currently or been in a relationship where the following occur: No concerns reported THRIVE Score: 0 AUDIT C Alcohol Use Questionnaire (AUDIT-C) 1. How often do you have a drink containing alcohol?: Never Total Score: 0 AFSHAN-7 AMB Questionnaire AFSHAN-7 Date AFSHAN - 7 assessed: 06/13/25 Feeling nervous, anxious, or on edge: 0 = Not at all Not being able to stop or control worryin = Not at all Worrying too much about different things: 0 = Not at all Trouble relaxin = Not at all Being so restless that it is hard to sit still: 0 = Not at all Becoming easily annoyed or irritable: 0 = Not at all Feeling afraid as if something awful might happen: 0 = Not at all Total AFSHAN-7 score (0-4 normal; 5-9 mild; 10-14 moderate; 15-21 severe): 0 Source: Developed by Drs. German Velez, Cecily Lew, Bay Cruz and colleagues, with an educational crystal from [employer]. Physical exam (Primary Care) Vital Signs: Last Vital Signs Temp 97.1 F 06/13/25 12:12 Pulse 72 06/13/25 12:12 BP 150/90 H 06/13/25 12:12 Pulse Ox 98 06/13/25 12:12 Oxygen Delivery Method Room Air 06/13/25 12:12 BMI result Body Mass Index 34.2 Tobacco/Smoking Status: Tobacco use Status Tobacco use date assessed 06/13/25 06/13/25 12:13 Patient Tobacco Use Status Never used Tobacco 06/13/25 12:13 e-Cigarette/Vaping Use Never Used 06/13/25 12:13 PHQ-9: PHQ-9 Score PHQ-9: Total score 0 06/13/25 12:13 Depression Screening Interpretation: Negative Thrive Assessment: Date of Thrive Assessment Date Thrive assessed 06/10/25 06/13/25 12:13 Currently or been in a relationship where the following occur: No concerns reported Coding Level of Care Code Est Pt Level 4 (41035) Complex EM visit Add On G2211 Diagnoses Class 2 severe obesity with body mass index (BMI) of 35 to 39.9 with serious comorbidity E66.01 Essential hypertension I10 Low back pain M54.50 Dementia F03.90 Assessment & Plan Assessment & Plan (1) Class 2 severe obesity with body mass index (BMI) of 35 to 39.9 with serious comorbidity: Code(s): E66.01 - Morbid (severe) obesity due to excess calories Category: Medical Plan: Counselling on the importance of diet and exercise done (2) Essential hypertension: Code(s): I10 - Essential (primary) hypertension Category: Medical Plan: BP is in range. Continue current medications. (3) Low back pain: Code(s): M54.50 - Low back pain, unspecified Category: Medical Plan: History of Present Illness - The patient is a 59-year-old female presenting with back pain and memory impairment. - Back pain: The patient has experienced issues with her back, which have improved following therapy. - Memory impairment: The patient has been experiencing difficulties with memory recall, such as forgetting the location of items and occasionally not recognizin g objects in her hand. - Family history: There is a family history of dementia, which raises concerns about the patient's memory issues. - Preventative care: The patient has undergone a mammogram this year as part of her routine preventative care. Social History Review of Systems - Neurological: Reports memory impairment, including difficulty recalling locations of items and recognizing objects in hand. Physical Exam General: Cooperative and healthy appearing Nutritional Appearance: Well nourished Orientation/consciousness: Patient oriented x3 Limitations: No limitations Head: Normal to inspection General: Appearance normal, both eyes and all related structures Neck: Normal visual inspection Chest: Normal palpation of entire chest wall Respiratory: N ormal respiratory effort Neurology: Patient oriented x3, but experiencing memory recall issues; referral to a neurologist recommended due to family history of dementia. Results Plan - A referral to a neurologist will be made to evaluate the patient's memory impairment and rule out any neurological conditions, considering the family history of dementia. - Blood work is planned to be conducted after one week, with instructions to fast from midnight before the test. Discussion Notes I discussed with the patient the need for a neurology referral to assess her memory concerns, given her family history of dementia. We also talked about scheduling blood work for further evaluation, emphasizing the importance of fasting before the test. The patient was advised to follow up after the neurology consultation and blood work results. Patient Instructions - Schedule an appointment with the neurologist as soon as possible. - Plan to have blood work done in one week, ensuring to fast from midnight before the test. (4) Dementia: Code(s): F03.90 - Unspecified dementia, unspecified severity, without behavioral disturbance, psychotic disturbance, mood disturbance, and anxiety Plan: Neuro consult to be obtained. Medications: Refilled rosuvastatin 40 mg PO DAILY 90 tabs 0RF E78.00 - Pure hypercholesterolemia, unspecified lorazepam (Ativan) Take 30 minutes prior to arrival to procedure 1 mg PO ONCE 1 tab 0RF anxiety
[2025-06-13 12:12] VITALS: BP 150/90; PULSE 72; TEMP 36.2; O2SAT 98; BMI 34.2
--- OUTSIDE RECORDS SUMMARY | 2025-06-13 13:33 | XMS_ITS | Clinical Summary ---
Author Organization [address] [facility] Address [address] [place] [address] Phone Care Team Providers Care Pin Drafter Operator Name Role Phone Tim Joseph MD Primary Care Provider [phone] Allergies Active Allergy Reactions Criticality Noted Date [...] new. We will place a referral to [facility] to discuss pain management options. Encounters Date Type Department Care Team Description 03/29/2025 1:00 PM EDT Consult Neurosurgery [place] [address] [place] [address] Frances Gonzalez MD Degeneration of [...] Last Done Comments Breast Cancer Screening 1966 Colorectal Cancer Screening: Colonoscopy 1966 DTaP,Tdap,and Td Vaccines (1 - Tdap) 1985 Hepatitis B Vaccines (1 of 3 - 19+ 3-dose series) 1985 Cervical Cancer Screening: P ap Smear 12/18/1987 Pneumococcal Vaccine: 50+ Ye ars (1 of 1 - PCV) 2016 Zoster Vaccines (1 of 2) 2016 HIV Screening 10/07/2023 Hepatitis C Screening 10/07/2023 Social Influencers of Health Screening 10/07/2023 Depression Screening 09/12/2024 COVID-19 Vaccine (1 - 2023-2 5 season) 2025 Influenza Vaccine (#1) 2025 Cholesterol Screening (Lipid Panel) 05/25/2028 05/25/2023 RSV Immunization Adult Patie nts (1 - 1-dose 75+ series) 2041 HIB Vaccines Aged Out No longer eligi [...] patient's age to complete this topic Insurance [facility] Care Teams Pin Drafter Operator Relationship Specialty Start Date End Date Tim Joseph MD [address] [place] [address] PCP - General Internal Medicine 03/19/25
== END 2025-06-13 15:40 | disposition home or self-care (01) ==
LOC: HO.HMCH 11:48
PROVIDERS: PCP Internal Medicine; Visit Provider Internal Medicine
DX: I10 Essential (primary) hypertension (principal); E66.01 Morbid (severe) obesity due to excess calories; F03.90 Unspecified dementia, unspecified severity, without behavioral disturbance, psychotic disturbance, mood disturbance, and anxiety; Z68.34 Body mass index [BMI] 34.0-34.9, adult; M54.50 Low back pain, unspecified

== ENCOUNTER 2025-09-09 09:04 | Outpatient (AMB) | payer OTHER, SELFPAY ==
--- NOTE | 2025-09-09 09:14 | A.OFFVIS_ITS ---
Intake Visit Reasons: Unspecified dementia Allergies ibuprofen Allergy (Intermediate, Verified 06/13/25 12:12) Hives salbutamol Adverse Reaction (Intermediate, Uncoded 06/13/25 12:12) Palpitations HPI Comments Details: The patient is a 59 year old female presenting for evaluation of memory loss and cognitive changes. Her reports that over the past three years, she has exhibited an increasing frequency of memory loss, inattention, and disorientati on to time and space, even within her own house. He notes that she sometimes intends to perform a task but ends up doing something else and forgets her original intention. Associated symptoms include some urinary incontinence and occasional complaints of headaches. Her personality has reportedly changed, with instances of getting angry over simple situations. Her walking is described as half and a half related to a colon problem from six years prior. Her sleep is sometimes okay and at other times disturbed. The patient has a past history of depression but is not taking any medication for it currently. Her father is 97 years old and has age-related memory loss. Her sister is suspected of having undiagnosed ADHD with inattention. The patient completed high school, has one child, and has no known metal implants or pacemaker. [facility] Medical History (Updated 09/09/25 @ 09:21 by Joni Hardy MD) Back pain Allergic Class 2 severe obesity with body mass index (BMI) of 35 to 39.9 with serious comorbidity Chronic allergic rhinitis Atelectasis Low back pain Hypercholesterolemia Essential hypertension Asthma History of benign breast biopsy Surgical History History of colonoscopy (02/14/25) History of surgery History of lumpectomy of left breast H/O: hysterectomy History of back surgery History of cystostomy Family History Maternal Aunt History of breast cancer Ovarian cancer Social History Housing: House Alcohol intake: never Patient Tobacco Use Status: Never used Tobacco e-Cigarette/Vaping Use: Never Used Second Hand Smoke Exposure: No service: No Current occupational status: unemployed Cognitive needs: No Hearing needs: No Vision needs: No Female Reproductive History Menstrual Age of Menarche: 14 Review of Systems Narrative Constitutional:? Has high blood pressure HEENT:?No headache, vision changes, hearing loss, nasal congestion, sore throat. Cardiovascular:?No chest pain, palpitations, orthopnea, PND, or leg swelling. Respiratory:? Complain of congestion and shortness of breath Gastrointestinal:? Complain of constipation. Genitourinary:? Complain of incontinence. Musculoskeletal:? Complain of muscle pain joint pains. Neurological:? Complain of confusion, memory problems, spacing out, and sleep problem. Psychiatric:? Complain of depression. Endocrine:?No heat/cold intolerance, polydipsia, polyuria, or hair/skin changes. Hematologic/Lymphatic:?No easy bruising, bleeding, or lymphadenopathy. Integumentary (Skin):?No rash, lesions, itching, or color changes. Allergic/Immunologic:?No seasonal allergies, hives, or recurrent infections. Physical Exam Neuro Other: Mental Status: She is alert and awake with normal spontaneity of speech fluency comprehension and affect. She has answering questions appropriately. Cranial Nerves: CN II: Visual ortiz full to confrontation, visual acuity intact. CN III, IV, : Pupils equal, round, reactive to light and accommodation. Extraocular movements are normal. CN V: Facial sensation is normal. CN VII: Facial movements symmetrical. CN VIII: Hearing intact to bedside conversation is normal. CN IX, X: Palate elevates symmetrically. CN XI: Shoulder shrug and head turn symmetrical. CN XII: Tongue midline without atrophy or fasciculations. Motor: No obvious focal arm or leg weakness. Deep tendon reflexes are trace to absent. Extrapyramidal: Full facial expressions and blinking. No rigidity. Movements are appropriate with no tremor or abnormality. Speech: Normal; no dysarthria or tremor. Assessment & Plan Assessment & Plan (1) Alzheimer dementia: Code(s): G30.9 - Alzheimer's disease, unspecified; F02.80 - Dementia in other diseases classified elsewhere, unspecified severity, without behavioral disturbance, psychotic disturbance, mood disturbance, and anxiety Category: Medical Qualifiers: Alzheimer's disease onset: early onset Dementia severity: mild Dementia behavioral or psychological symptom: with mood disturbance Qualified Code(s): G30.0 - Alzheimer's disease with early onset; F02.A3 - Dementia in other diseases classified elsewhere, mild, with mood disturbance Plan Impression: 59 years old woman with symptoms of confusion, spacing out, inattention, memory problems, incontinence, and depression. Initial testing was requested to rule out common causes of encephalopathy and dementia. I discussed with the patient's the plan to investigate her cognitive symptoms. I explained that we will start with several tests to look for any problem with the brain, including a brain MRI, an EEG, and some blood tests. I clarified that if these tests do not reveal a cause, I may then treat her for depression, as it can be a cause of such symptoms. Regarding his concern about possible undiagnosed ADHD, I explained that this is typically a diagnosis made in childhood and that we must first focus on other potential causes more common in her age group. Orders: Orders MR head/brain wo con Today F02.80 - Dementia in other diseases classified elsewhere, unspecified severity, without behavioral disturbance, psychotic disturbance, mood disturbance, and anxiety, G30.9 - Alzheimer's disease, unspecified Vitamin B12 and Folate Today F02.80 - Dementia in other diseases classified elsewhere, unspecified severity, without behavioral disturbance, psychotic disturbance, mood disturbance, and anxiety, G30.9 - Alzheimer's disease, unspecified Lyme IgG/IgM w/reflex to WB Today F02.A3 - Dementia in other diseases classified elsewhere, mild, with mood disturbance, G30.0 - Alzheimer's disease with early onset Syphilis Screen Today F02.A3 - Dementia in other diseases classified elsewhere, mild, with mood disturbance, G30.0 - Alzheimer's disease with early onset EEG Routine Today G93.40 - Encephalopathy, unspecified Coding Level of Care Code New Pt Level 4 (16451) Diagnoses Mild early onset Alzheimer's dementia with mood disturbance G30.0; F02.A3 Alzheimer's disease onset: early onset Dementia severity: mild Dementia behavioral or psychological symptom: with mood disturbance
--- OUTSIDE RECORDS SUMMARY | 2025-09-09 09:23 | XMS_ITS | Clinical Summary ---
Author Organization 175 [facility] Address [address] [place] [address] Phone Care Team Providers Care Sales Record Clerk Name Role Phone Tim Joseph MD Primary Care Provider [phone] Allergies Active Allergy Reactions Criticality Noted Date [...] new. We will place a referral to [facility] to discuss pain management options. Encounters Date Type Department Care Team Description 06/20/2025 Telephone Neurosurgery [place] - [address] [place] [address] Kavita Kaur MA from Last 3 Months Surgical History Surgery [...] on file Sexual Orientation Not on file Last Filed Vital Signs Vital Sign Reading [...] Depression Screening 09/12/2024 COVID-19 Vaccine (1 - 2024-2 6 season) 2025 Influenza Vaccine (#1) 2025 Cholesterol [...] patient's age to complete this topic Insurance [facility] Care Teams Sales Record Clerk Relationship Specialty Start Date End Date Tim Joseph MD [address] [place] [address] PCP - General Internal Medicine 03/19/25
== END 2025-09-09 09:32 | disposition home or self-care (01) ==
LOC: HO.HSM 09:05
PROVIDERS: PCP Internal Medicine; Visit Provider Psychiatry & Neurology Neurology
DX: G30.0 Alzheimer's disease with early onset (principal); F02.A3 Dementia in other diseases classified elsewhere, mild, with mood disturbance
CPT/HCPCS: 99204

== ENCOUNTER 2025-09-09 09:04 | Outpatient (REF) | payer OTHER, SELFPAY ==
[2025-09-09 11:20] LABS: Syphilis Screen Nonreactive (Nonreactive)
[2025-09-09 11:35] LABS: Folate 11.9 ng/mL (> or = 4.0); Vitamin B12 487 pg/mL (200-900)
[2025-09-10 08:42] LABS: Lyme Abs Screen <0.90 index
== END 2025-09-09 09:05 | disposition home or self-care (01) ==
LOC: HO.LAB 09:04
PROVIDERS: PCP Internal Medicine; Visit Provider Psychiatry & Neurology Neurology
DX: G30.0 Alzheimer's disease with early onset (principal); F02.A3 Dementia in other diseases classified elsewhere, mild, with mood disturbance; Z20.2 Contact with and (suspected) exposure to infections with a predominantly sexual mode of transmission; Z01.84 Encounter for antibody response examination
CPT/HCPCS: 36415; 82607; 82746; 86617; 86618; 86780